=== PATIENT | female | born 1955 | race Caucasian/White ===

== ENCOUNTER 2022-07-20 13:02 | Outpatient (CLI) | payer MEDICARE, BC, SELFPAY ==
--- NOTE | 2022-07-20 13:20 | CRLHL7_ITS ---
For Patients: As a result of the Cures Act, medical imaging exams and procedure reports are released immediately into your electronic medical record. You may view this report before your referring provider. If you have questions, please contact your health care provider. BILATERAL SCREENING MAMMOGRAM WITH COMPUTER-AIDED DETECTION AND TOMOSYNTHESIS TECHNIQUE: CC and MLO views were obtained. These mammographic images have been obtained using full-field digital technique. These mammographic images were interpreted with the benefit of computer-aided detection. Breast Tomosynthesis was used in this interpretation. COMPARISON FILM: 07/26/20, 05/11/20, 05/07/19. FINDINGS: There are scattered areas of fibroglandular density. IMPRESSION: There is no radiographic evidence for malignancy. ASSESSMENT: BI-RADS Category 1: Negative RECOMMENDATION: Routine screening mammogram in 1 year. A lay language report of this examination will be provided to the patient. Silvano Goldman M.D. Diagnostic Radiologist [email or web address] Transcribed: 12:09 p.m. PT/Dictated by: Silvano Goldman MD @ 07/21/2022 8:59:00 AM (Electronically Signed)
== END 2022-07-20 13:03 | disposition home or self-care (01) ==
PROVIDERS: PCP Family Medicine; Visit Provider Family Medicine
DX: Z12.31 Encounter for screening mammogram for malignant neoplasm of breast (principal)
CPT/HCPCS: 77063; 77067

== ENCOUNTER 2022-07-25 17:12 | Emergency (ER) | payer MEDICARE, BC, SELFPAY ==
[2022-07-25] VITALS (23 sets, daily range): BP systolic 132–194; BP diastolic 71–109; PULSE 70–90; RESP 18; TEMP 37.4; O2SAT 95–99; BMI 25.1
[2022-07-25] MEDS: NITROGLYCERIN 0.4 MG TAB.SUBL SUBLINGUAL ×2 (17:45→18:00)
--- NOTE | 2022-07-25 17:55 | CRLHL7_ITS ---
For Patients: As a result of the Century Cures Act, medical imaging exams and procedure reports are released immediately into your electronic medical record. You may view this report before your referring provider. If you have questions, please contact your health care provider. INDICATION: CHEST PAIN TECHNIQUE: Chest 1 view. COMPARISON: 10/28/13 FINDINGS: Cardiovascular and mediastinum: Heart size and vasculature are normal in caliber and appearance. Mediastinum is within normal limits. Lungs and pleural space: Lungs are clear. No sign of infiltrate or mass. No sign of pleural effusion. No pneumothorax. Bones and soft tissues: No significant findings. IMPRESSION: Unremarkable chest. Dictated by: Silvano Barajas MD @ 07/25/2022 18:11:06 (Electronically Signed)
[2022-07-25 18:07] LABS: Basophils Absolute Auto 0.01 K/uL (0.00-0.30); Basophils Percent Auto 0.2 % (0.0-3.0); Eosinophils Percent Auto 3.3 % (0.0-7.0); Hematocrit 45.7 % (33.0-51.0); Hemoglobin* 15.1 gm/dL (12.0-16.0); Immature Granulocytes Abs Auto 0.01 K/uL (0.00-0.30); Immature Granulocytes Pct Auto 0.2 %; Lymphocytes Absolute Auto 2.18 K/uL (0.90-2.90); Lymphocytes Percent Auto 35.6 % (20-44); Mean Corpuscular HGB Conc 33 gm/dL (32-36); Mean Corpuscular Hemoglobin 31 pg (26-34); Mean Corpuscular Volume 95 fL (80-100); Monocytes Percent Auto 9.3 % (0.0-11.0); Neutrophils Absolute Auto 3.16 K/uL (1.7-7.0); Neutrophils Percent Auto 51.4 % (42.0-72.0); Platelet Count* 256 K/uL (140-440); RDW Coefficient of Variation % 13.2 % (11.5-15.5); Red Blood Count 4.83 m/uL (4.00-5.20); White Blood Count* 6.13 K/uL (4.50-11.00)
[2022-07-25] MEDS: ASPIRIN 81 MG TAB.CHEW 324 MG PO (18:15)
[2022-07-25] MEDS: 0.9 % SODIUM CHLORIDE 500 ML 500 ML IV (18:16)
[2022-07-25 18:21] LABS: Chloride* 106 mmol/L (96-114)
[2022-07-25 18:22] LABS: Sodium* 141 mmol/L (135-149)
[2022-07-25 18:25] LABS: Blood Urea Nitrogen* 17 mg/dL (7-30); Carbon Dioxide* 27 mmol/L (20-32); Creatinine* 0.8 mg/dL (0.5-1.5); Est. Creatinine Clearance* 41.99; Estimated Glomerular Filt Rate 80 ml/min; Glucose* 97 mg/dL (60-115)
[2022-07-25 18:26] LABS: Calcium* 9.7 mg/dL (8.4-10.6)
[2022-07-25 18:28] LABS: Slide Review Reflex No
[2022-07-25 18:29] LABS: C Reactive Protein* < 0.5 mg/dL (0.5-1.0)
[2022-07-25 19:04] LABS: Albumin* 4.6 g/dL (3.3-5.0)
[2022-07-25 19:07] LABS: Alkaline Phosphatase* 88 U/L (40-150); Aspartate Amino Transferase* 29 U/L (12-35); Bilirubin Direct* 0.3 mg/dL (0.0-0.5); Bilirubin Total* 0.5 mg/dL (0.1-1.5); Lipase* 60 U/L (23-300); Total Protein* 7.3 g/dL (6.0-8.3)
[2022-07-25 19:08] LABS: Alanine Aminotransferase* 27 U/L (4-35)
[2022-07-25 19:17] LABS: NT Pro B Type NatriureticPept* 130 pg/mL
[2022-07-25 19:22] LABS: D Dimer Quantitative* < 0.27 ug/ml (0.00-0.50)
[2022-07-25 19:42] LABS: PCR FLU A Negative PCR FLU A (Negative); PCR FLU B Negative PCR FLU B (Negative); PCR RSV Negative PCR RSV (Negative)
[2022-07-25 19:47] LABS: SARS PCR* Negative SARS-CoV-2 (Negative)
--- NOTE | 2022-07-25 20:27 | ED.GENADULT ---
HPI - General Adult General Date Seen: 07/25/22 Chief complaint: Chest Pain Stated complaint: Chest pain, high BP Time Seen by Provider: 07/25/22 17:14 Source: patient Mode of arrival: ambulatory Limitations: no limitations History of Present Illness HPI narrative: Patient is a 67-year-old woman who comes in saying that she is concerned about her blood pressure being high today. She has checked it throughout the day and it has been significantly elevated. She says she has had a mild headache but nothing severe. No focal neurologic complaints. No vomiting although she has felt a little nauseated. She also notes that she has had some pain across her chest. She says that this has come and gone since 10:00 a.m. but since 3:00 p.m. she says it has been more constant. It radiates to the back and she told me that it radiates to her arms and jaw although she did not tell the nurses that. She describes it as a pressure. It is not worsened by exertion or position. It is not pleuritic. She does not have any shortness of breath. Denies any lower extremity swelling or pain. Denies any history of similar pain previously. She says every time she has checked her blood pressure today it has been a little higher, and she has gotten more and more concerned. She called the nurse line, and they read off symptoms of possible heart attack and told her to use her judgment as to whether not she came in. Does say that her brother had 4 vessel bypass when he was 75, and since she is 67 that is been on her mind as well. She has not had any palpitations or syncope. She does not smoke or drink. She is here tonight with her . Related Data Home Medications Medication Instructions Recorded Confirmed lovastatin 40 mg tablet 40 mg PO HS 07/25/22 07/25/22 zinc 1 tab PO DAILY 07/25/22 07/25/22 Allergies Allergy/AdvReac Type Severity Reaction Status Date / Time Sulfa (Sulfonamide Allergy Mild rash Verified 07/25/22 17:45 Antibiotics) macrobid Allergy Mild rash Uncoded 07/25/22 17:45 prednisone Allergy Mild throat and Uncoded 07/25/22 17:45 chest tightness Review of Systems Status of ROS: Reports: 10 or more systems reviewed and unremarkable except as noted in History and below PFSH PFS Social History Smoking Status: Never smoker Do you use any of these nicotine containing products: None Second hand tobacco smoke exposure: No How often do you have a drink containing alcohol: 4 or more times a week How many standard drinks containing alcohol do you have on a typical day: 1 or 2 How often do you have six or more drinks on one occasion: Never AUDIT-C Alcohol total score: 4 Non-prescribed substance use: denies use Exam Narrative: Exam Narrative: Vital signs as noted above. In general, an alert, nontoxic elderly woman. She looks comfortable, she is breathing easily. Head: Normocephalic, atraumatic. Eyes: Pupils are equal reactive. Extraocular movements are full. Conjunctivae are normal. ENT: Mucous membranes are moist. Throat is normal. Neck: Supple without lymphadenopathy. Heart: Regular rate and rhythm. No murmur or rub. Lungs: Clear bilaterally. No increased work of breathing, crackles or wheezes. Abdomen: Soft and nontender. No organomegaly. Extremities: Well perfused. No edema. No calf tenderness. Pulses intact. Neurologic: Patient is alert and oriented to person and place. Speech is fluent. Face is symmetric. Moves all extremities equally. Affect: Normal. Skin: Warm and dry. Well perfused. Const: Vital Signs, click to edit/add: Vital Signs - 24 hr 07/25/22 17:33 07/25/22 18:06 07/25/22 17:55 Temperature 99.4 F Pulse Rate 88 Pulse Rate [Left P ulse Oximeter] 90 Respiratory Rate 18 Blood Pressure Blood Pressure [Ri ght Upper Arm] 194/109 H Pulse Oximetry 98 99 97 Oxygen Delivery Me thod Room Air 07/25/22 18:00 07/25/22 18:02 07/25/22 18:03 Temperature Pulse Rate 81 80 88 Pulse Rate [Left P ulse Oximeter] Respiratory Rate Blood Pressure 165/107 H Blood Pressure [Ri ght Upper Arm] Pulse Oximetry 97 97 98 Oxygen Delivery Me thod 07/25/22 18:15 07/25/22 18:17 07/25/22 18:30 Temperature Pulse Rate 82 87 75 Pulse Rate [Left P ulse Oximeter] Respiratory Rate Blood Pressure 146/90 H Blood Pressure [Ri ght Upper Arm] Pulse Oximetry 96 97 98 Oxygen Delivery Me thod 07/25/22 18:31 07/25/22 18:45 07/25/22 18:47 Temperature Pulse Rate 75 80 78 Pulse Rate [Left P ulse Oximeter] Respiratory Rate Blood Pressure 148/78 H 151/84 H Blood Pressure [Ri ght Upper Arm] Pulse Oximetry 98 97 98 Oxygen Delivery Me thod 07/25/22 19:00 07/25/22 19:02 07/25/22 19:03 Temperature Pulse Rate 71 74 75 Pulse Rate [Left P ulse Oximeter] Respiratory Rate Blood Pressure 132/81 Blood Pressure [Ri ght Upper Arm] Pulse Oximetry 98 96 96 Oxygen Delivery Me thod 07/25/22 19:15 07/25/22 19:16 07/25/22 19:30 Temperature Pulse Rate 73 73 70 Pulse Rate [Left P ulse Oximeter] Respiratory Rate Blood Pressure 140/75 H Blood Pressure [Ri ght Upper Arm] Pulse Oximetry 97 95 98 Oxygen Delivery Me thod 07/25/22 19:31 07/25/22 19:45 07/25/22 19:47 Temperature Pulse Rate 72 82 73 Pulse Rate [Left P ulse Oximeter] Respiratory Rate Blood Pressure 132/71 141/71 H Blood Pressure [Ri ght Upper Arm] Pulse Oximetry 95 96 97 Oxygen Delivery Me thod 07/25/22 20:00 07/25/22 20:02 Temperature Pulse Rate 80 75 Pulse Rate [Left P ulse Oximeter] Respiratory Rate Blood Pressure 154/85 H Blood Pressure [Ri ght Upper Arm] Pulse Oximetry 97 97 Oxygen Delivery Me thod Documenting provider has reviewed patient's vital signs: yes Course Course Hospital Course: On arrival, patient had an EKG. By my review, this showed a normal sinus rhythm, ventricular rate of 89 beats per minute. There is a little baseline waiver in V3, but she does appear to have slight amount of ST depression in V3 and V4, and a little bit of ST depression in V2. No ST elevation. She had nitroglycerin sublingual x2, she had an aspirin. Her blood pressure did come back quite nicely. I compared her current EKG to an old EKG from 2014, at which time she had a normal EKG, no ST depression or elevation. About 20-25 minutes after her 1st EKG and when her blood pressure was improved and chest pain was less than, I repeated an EKG. At that time she had a ventricular rate of 79 beats per minute, and the ST depression previously seen in V3 and V4 and lead to is no longer seen. The baseline waiver in V3 is corrected. Her initial troponin was 0. A troponin at2 hours. was likewise 0. This would have been after about 5 hours of pain. I did review her EKGs with Cardiology at [facility] given that she had some subtle findings which changed with improvement in her blood pressure. He felt that they were quite subtle that if she ruled out it would be appropriate to discharge home with outpatient follow-up for either stress testing or CT coronary angiogram. Her blood pressure normalized quite nicely while she was here. Her headache resolved. Her white blood cell count was normal at 6, hemoglobin was 15.1. Platelets normal. D-dimer was less than 0.27. I do not think this represents dissection. Her chest pain has been mild, hypertension has resolved, D-dimer is negative. I did do a chest x-ray, which showed a normal mediastinum. Final radiology report is negative. Metabolic panel is entirely within normal limits. LFTs are normal. CRP is less than 0.5. BNP is normal. TSH is 3.2. COVID is negative. At this point, patient is feeling well. Symptoms have improved. She is comfortable with discharge home and outpatient follow-up with her primary clinic. We discussed that she does not need to keep a close eye on her blood pressure at home. I would like her to return to the ER based on symptoms rather than her blood pressure. If she has severe chest pain, shortness of breath, unexplained nausea, lightheadedness, vomiting, etcetera, regardless of her blood pressure, I would like her to come back. Otherwise, follow up with primary care, they can discuss her blood pressure at that time and see if Dr. Bingham would like her to keep track of her blood pressure more closely at home. Outpatient evocative testing or CT coronary angiogram as outlined above Vital Signs Vital signs: Initial Vital Signs Temperature 99.4 F 07/25/22 17:33 Temperature Source Temporal Artery Scan 07/25/22 17:33 Pulse Rate 90 07/25/22 17:33 Respiratory Rate 18 07/25/22 17:33 Blood Pressure 194/109 H 07/25/22 17:33 Blood Pressure Mean 137 07/25/22 17:33 Blood Pressure Position Sitting 07/25/22 17:33 Pulse Oximetry 98 07/25/22 17:33 Oxygen Delivery Method 07/25/22 17:33 Vital Signs Temperature 99.4 F 07/25/22 17:33 Pulse Rate 90 07/25/22 17:33 Respiratory Rate 18 07/25/22 17:33 Blood Pressure 194/109 H 07/25/22 17:33 Pulse Oximetry 98 07/25/22 17:33 Oxygen Delivery Method 07/25/22 17:33 Temperature 99.4 F 07/25/22 17:33 Pulse Rate 75 07/25/22 20:02 Respiratory Rate 18 07/25/22 17:33 Blood Pressure 154/85 H 07/25/22 20:02 Pulse Oximetry 97 07/25/22 20:02 Oxygen Delivery Method 07/25/22 17:33 Medical Decision Making Lab Data Labs: Lab Results 07/25/22 07/25/22 07/25/22 Range/Units 17:40 17:40 17:40 WBC 6.13 (4.50-11.00) K/uL RBC 4.83 (4.00-5.20) m/uL Hgb 15.1 (12.0-16.0) gm/dL Hct 45.7 (33.0-51.0) % MCV 95 (80-100) fL MCH 31 (26-34) pg MCHC 33 (32-36) gm/dL RDW Coeff of Ramon 13.2 (11.5-15.5) % Plt Count 256 (140-440) K/uL Neut % (Auto) 51.4 (42.0-72.0) % Lymph % (Auto) 35.6 (20-44) % [place] % (Auto) 9.3 (0.0-11.0) % Eos % (Auto) 3.3 (0.0-7.0) % Baso % (Auto) 0.2 (0.0-3.0) % Neut # (Auto) 3.16 (1.7-7.0) K/uL Lymph # (Auto) 2.18 (0.90-2.90) K/uL [place] # (Auto) 0.60 (0.00-0.90) K/UL Eos # (Auto) 0.20 (0.00-0.50) K/uL Baso # (Auto) 0.01 (0.00-0.30) K/uL D-Dimer Quant (PE/DVT) (0.00-0.50) ug/ml Sodium 141 (135-149) mmol/L Potassium 4.0 (3.6-5.1) mmol/L Chloride 106 (96-114) mmol/L Carbon Dioxide 27 (20-32) mmol/L BUN 17 (7-30) mg/dL Creatinine 0.8 (0.5-1.5) mg/dL Estimated Creat Clear 41.99 Estimated GFR 80 ml/min Glucose 97 (60-115) mg/dL Calcium 9.7 (8.4-10.6) mg/dL Total Bilirubin (0.1-1.5) mg/dL Direct Bilirubin (0.0-0.5) mg/dL AST (12-35) U/L ALT (4-35) U/L Alkaline Phosphatase (40-150) U/L C-Reactive Protein < 0.5 L (0.5-1.0) mg/dL NT-Pro-B Natriuret Pep pg/mL Total Protein (6.0-8.3) g/dL Albumin (3.3-5.0) g/dL Lipase (23-300) U/L TSH (0.270-4.200) uIU/mL SARS-CoV-2 (PCR) (Negative) Influenza Type A (PCR) (Negative) Influenza Type B (PCR) (Negative) RSV (PCR) (Negative) POC Troponin I 0.00 L (0.01-0.04) ng/ml 07/25/22 07/25/22 07/25/22 Range/Units 17:40 17:40 17:40 WBC (4.50-11.00) K/uL RBC (4.00-5.20) m/uL Hgb (12.0-16.0) gm/dL Hct (33.0-51.0) % MCV (80-100) fL MCH (26-34) pg MCHC (32-36) gm/dL RDW Coeff of Ramon (11.5-15.5) % Plt Count (140-440) K/uL Neut % (Auto) (42.0-72.0) % Lymph % (Auto) (20-44) % [place] % (Auto) (0.0-11.0) % Eos % (Auto) (0.0-7.0) % Baso % (Auto) (0.0-3.0) % Neut # (Auto) (1.7-7.0) K/uL Lymph # (Auto) (0.90-2.90) K/uL [place] # (Auto) (0.00-0.90) K/UL Eos # (Auto) (0.00-0.50) K/uL Baso # (Auto) (0.00-0.30) K/uL D-Dimer Quant (PE/DVT) < 0.27 (0.00-0.50) ug/ml Sodium (135-149) mmol/L Potassium (3.6-5.1) mmol/L Chloride (96-114) mmol/L Carbon Dioxide (20-32) mmol/L BUN (7-30) mg/dL Creatinine (0.5-1.5) mg/dL Estimated Creat Clear Estimated GFR ml/min Glucose (60-115) mg/dL Calcium (8.4-10.6) mg/dL Total Bilirubin 0.5 (0.1-1.5) mg/dL Direct Bilirubin 0.3 (0.0-0.5) mg/dL AST 29 (12-35) U/L ALT 27 (4-35) U/L Alkaline Phosphatase 88 (40-150) U/L C-Reactive Protein (0.5-1.0) mg/dL NT-Pro-B Natriuret Pep 130 pg/mL Total Protein 7.3 (6.0-8.3) g/dL Albumin 4.6 (3.3-5.0) g/dL Lipase 60 (23-300) U/L TSH 3.280 (0.270-4.200) uIU/mL SARS-CoV-2 (PCR) (Negative) Influenza Type A (PCR) (Negative) Influenza Type B (PCR) (Negative) RSV (PCR) (Negative) POC Troponin I (0.01-0.04) ng/ml 07/25/22 07/25/22 Range/Units 17:56 19:43 WBC (4.50-11.00) K/uL RBC (4.00-5.20) m/uL Hgb (12.0-16.0) gm/dL Hct (33.0-51.0) % MCV (80-100) fL MCH (26-34) pg MCHC (32-36) gm/dL RDW Coeff of Ramon (11.5-15.5) % Plt Count (140-440) K/uL Neut % (Auto) (42.0-72.0) % Lymph % (Auto) (20-44) % [place] % (Auto) (0.0-11.0) % Eos % (Auto) (0.0-7.0) % Baso % (Auto) (0.0-3.0) % Neut # (Auto) (1.7-7.0) K/uL Lymph # (Auto) (0.90-2.90) K/uL [place] # (Auto) (0.00-0.90) K/UL Eos # (Auto) (0.00-0.50) K/uL Baso # (Auto) (0.00-0.30) K/uL D-Dimer Quant (PE/DVT) (0.00-0.50) ug/ml Sodium (135-149) mmol/L Potassium (3.6-5.1) mmol/L Chloride (96-114) mmol/L Carbon Dioxide (20-32) mmol/L BUN (7-30) mg/dL Creatinine (0.5-1.5) mg/dL Estimated Creat Clear Estimated GFR ml/min Glucose (60-115) mg/dL Calcium (8.4-10.6) mg/dL Total Bilirubin (0.1-1.5) mg/dL Direct Bilirubin (0.0-0.5) mg/dL AST (12-35) U/L ALT (4-35) U/L Alkaline Phosphatase (40-150) U/L C-Reactive Protein (0.5-1.0) mg/dL NT-Pro-B Natriuret Pep pg/mL Total Protein (6.0-8.3) g/dL Albumin (3.3-5.0) g/dL Lipase (23-300) U/L TSH (0.270-4.200) uIU/mL SARS-CoV-2 (PCR) Negative SARS-CoV-2 (Negative) Influenza Type A (PCR) Negative PCR FLU A (Negative) Influenza Type B (PCR) Negative PCR FLU B (Negative) RSV (PCR) Negative PCR RSV (Negative) POC Troponin I 0.00 L (0.01-0.04) ng/ml Discharge Plan Discharge Clinical Impression: Chest pain Patient Disposition: Home, Self-Care Condition: Improved Instructions: Chest Pain (ED) Additional Instructions: Follow-up with Dr. Bingham this week for re-evaluation and to arrange for outpatient stress test. If at any time you have severe chest pain, shortness of breath, unexplained nausea, sweats, vomiting, etcetera, return to the emergency department for re-evaluation. Prescriptions: No Action lovastatin 40 mg tablet 40 mg PO HS Label Comments: TAKE ONE TABLET BY MOUTH ONE TIME DAILY AT BEDTIME zinc 1 tab PO DAILY Follow Up/Referrals: Thais Bingham MD [Primary Care Provider] - Stand Alone Forms: Picateersth Info Instructions
== END 2022-07-25 20:19 | disposition home or self-care (01) ==
PROVIDERS: Emergency Provider Emergency Medicine; PCP Family Medicine
DX: R07.9 Chest pain, unspecified (principal)
CPT/HCPCS: 36415; 71045; 80048; 80076; 83690; 83880; 84443; 84484; 85025; 85379; 86140; 87502; 87634; 87635; 93005; 94761; 99284; 99285; A9270; J7120

== ENCOUNTER 2022-10-05 10:46 | Outpatient (RCR) | payer MEDICARE, BC, SELFPAY | END 2023-01-19 23:59 | disposition home or self-care (01) | PROVIDERS: PCP Family Medicine; Visit Provider Orthopaedic Surgery Sports Medicine | DX: M67.911 Unspecified disorder of synovium and tendon, right shoulder (principal); M75.111 Incomplete rotator cuff tear or rupture of right shoulder, not specified as traumatic; M25.511 Pain in right shoulder; M62.81 Muscle weakness (generalized); Z51.89 Encounter for other specified aftercare | CPT/HCPCS: 97110; 97162 ==

== ENCOUNTER 2023-02-15 14:30 | Outpatient (RCR) | payer MEDICARE, BC, SELFPAY ==
--- NOTE | 2022-11-23 12:08 | PT.OPEX ---
PT [place] Outpatient Eval PT [facility] Outpatient Eval Start: 11/23/22 07:18 Freq: Status: Active Protocol: Document 11/23/22 07:19 MAI (Rec: 11/23/22 07:26 MAI [id number]) E-signed By Shayy Gomez PT Physical Therapy Outpatient Evaluation Insurance Information Recert Due Date 02/17/23 Insurance Name Medicare B Medical Diagnosis P/O Rt Shoulder SAD/DCE/RCR DOS: 11/09/22 Treating Diagnosis Impaired AROM and MMT Rt shoulder Reduced ease of self cares and home tasks Referring MD Dr Darell Santiago Subjective Subjective Cori reports having Rt shoulder pain for the past 4+ months of unknown etiology ( denies accident or incident which may be related to pain). She was seen in PT and attempted HEP, but it was just too painful and she returned to physician for f/u. Per MRI findings, she underwent a Rt Shoulder SAD/DCE/RCR with surgery on 11/09/22. She is seen this date as her first PT session since her surgical date, s/p 2 weeks. Cori states she has been doing well, pain has been minimal. Only taking Tylenol or Ibuprofen before bed to help her sleep. Ice feels great. Not taking any stronger pain meds. Minimal tingling into fingers, which dissipates with sling removal and arm dangle. Sleeping in her own bed already. No DARBY or additional neck pain (has PMHX of CX impingement/DDD). Cont with her neck stretches and core ex already. Walking for ex, has not yet tried pool. Pain Comments Low pain Rt shoulder/UE Date of Last Physician Visit 11/09/22 Date of Next Physician Visit 12/21/22 Date of Surgery (If applicable) 11/09/22 Current Work Status Retired Preferred Name Cori Precautions Treatment Precautions/Contraindications Degenerative Lumbar Stenosis, Sulfa Allergies, Fibromyalgia, IBS, Osteopenia, Sjogrens Syndrome, Hypertension, PMHX of recurring BPPV, metal implants. Therapy Limitations/Systems Review Vision Objective Range of Motion CX AROM WNL ROT, SB 75% normal , EXT 60% normal. Lt shoulder is WNL Rt shoulder PROM: FF 0-115 deg , ABD 0-60 deg, ER 0-30 deg. All very open end feel and pain free. Stopped with discomfort. Elbow/forearm/wrist/hand WNL Strength NA Swelling Palpable edema at Rt shoulder. She stopped using ice machine because she had no real pain to speak of. Advised to resume ice 2-3 X/Day even if pain free. Palpation Very guarded at pect major and minor Posture Slight elevation of Rt shoulder. Assessment Assessment/Impression 67 yo female who underwent a Rt shoulder RCR/SAD/DCE on 04/24. She arrived to clinic IND ambulation without any AD, wearing Rt shoulder sling. She has slight forward head and elevated Rt shoulder, able to relax and reposition very easily. She has been seen previously for neck involvement, she is aware of and resumed performing CX stretches and postural ex ( scapular retraction/depression , UT stretching, etc). She is able to independently don/doff her own sling, carefully don/ doff overhead shirt (place Rt arm into sleeve first, then overhead). She is independent in bed mobility. She tolerated PROM very well; PROM in supine: FF 0-115 deg, ABD 0-60 deg, ER 0-30 deg - all open end feel and completely pain free in noted range. She has increased tone and guarding of pect major/minor and some increased tone at biceps. Edema is present, client states she stopped using ice as she was pain free. Educated in benefits of cont ice use - advised 2-3 times per day to control edema/pain and improve healing. She has AROM WNL in Rt elbow, forearm, wrist. Denies N/T into UE. She will benefit from continued skilled physical therapy to provide PROM and postural education, progress into AAROM/AROM and strength per physician f/u and approval to progress through RCR protocol. Thank you for this referral. Plan of Care Rehabilitation Potential Good Physical Therapy Goals In 4-6 weeks, Cori will be able to: 1. Complete PROM with minimal pain, WFL 2. Perform HEP independently with proper pace, reps and HOLD duration, emphasis on proper alignment 3. [employer] strength of at least 2 /3 that of non-involved Lt UE In 10-12 weeks, Cori will be able to: 1. AROM WFL pain free, allow don/doff overhead shirt without compensatory movement patterns 2. MMT at least 4/5 in gravity resisted position stance to promote UE repetitive use for 60 min at waist to sternum height. 3. Lift/carry up to 20# to: gather and carry groceries, complete laundry and vacuum, meal prep and clean up, lift her new Great Grandson safely. 4. Return to at least 75% of PLOF without discomfort greater than 2/10 average. Coordination/Communication With Referral Source Treatment Plan/Direct Interventions Ice/Cold/Vasopneumatic,Joint Mobilization,Manual Therapy, Neuromuscular Re-ed,Self-Care/ Home Management,Therapeutic Activities,Therapeutic Exercises Frequency/Duration 1X/Wk for 20 visits Patient Will Be Discharged From Therapy Completion of LTG(s),Skills Plateau,Independent w/HEP, Independently Progressing Evaluation Billing Untimed Code Treatment Minutes 23 Complexity Moderate Certification Information Initial Certification Date 11/23/22 Ending Certification Date 02/17/23 Provider Signature Shows Agreement With POC & Medical Necessity Physician Signature & Date Requested Please Sign/Date Here Physician Comment/Change : Physician NPI Number #
== END 2023-05-18 17:29 | disposition home or self-care (01) ==
PROVIDERS: PCP Family Medicine; Visit Provider Orthopaedic Surgery Sports Medicine
DX: Z98.890 Other specified postprocedural states (principal); Z51.89 Encounter for other specified aftercare
CPT/HCPCS: 97110; 97140; 97162

== ENCOUNTER 2023-07-25 15:39 | Outpatient (CLI) | payer MEDICARE, BC, SELFPAY ==
--- OUTSIDE RECORDS SUMMARY | 2023-07-25 15:47 | XMS_ITS | Continuity of Care Document ---
Author Name Unknown Organization [facility] Address [address] [place] [address] Phone Care Team Providers Care Line Haul Owner Operator Name Role Phone Ezequiel Gregory Unavailable Unavailable Allergies, Adverse Reactions, Alerts Substance Reaction Status Criticality NITROFURANTOIN MACROCRYSTALLINE Active No Information azithromycin Active No Information Sulfa (Sulfonamide Antibiotics) Active No Information Medications Medication Instructions Dosage Effective Dates (start - stop) Status Comments HYDROCHLOROTHIAZIDE (unknown strength) Not Available - Active LOVASTATIN (unknown strength) Not Available - Active ZANTAC (unknown strength) Not Available - Active Procedures Procedure Date Office/Outpatient Visit,[facility] 2018 Advance Directives Directive Yes / No Effective Date File Name No Information Encounters Encounter Description Practice Location Reason(s) For Visit Diagnoses Date Provider Providers Copied on Encounter [facility], [address], [place], [place], [id number], [place] tel:[phone] [facility] No Information [address]. [facility], [address], [place], [place], [id number] , [place]. [phone] Office/Outpat ient Visit,[facility], [address], [place], [place], [id number], [place] tel:[phone] [facility] [place] CervicalgiaLow back pain 9 [address]ieves. [facility], [address], [place], [place], [id number] , [place]. [phone] Referring Provider: Thais Bingham [facility] [address], [place], [address]. tel:[phone] Family History Family Member Type Diagnosis Age At Onset No Information Payers Payer name Insurance type Covered democrat ID Olga cam(s) [facility] [id number] Medicare Agustin [id number] Social History Type Description Quantity Date Captured Comments Sex Female Smoking Status No Information Chief Complaint And Reason For Visit No Information Reason For Referral Reason For Referral No Information History Of Present Illness Encounter Date Complaint History Of Prese nt Illness No Information Functional Status Date Functional Assessmen t No Information Instructions Date Instruction Additional Infor mation No Information Assessments Type Assessment Date No Information Patient Care Teams Name Effective Dates (start - stop) Status Members No Information
--- OUTSIDE RECORDS SUMMARY | 2023-07-25 15:47 | XMS_ITS | Data Portability ---
Author Name Unknown Address [address] [place] [address] Phone [phone] Organization [place] [facility], [facility] Address [address] [place] [address] Care Team Providers Care Parachute Inspector Name Role Phone WIL OCHOA Referring Provider [phone] Assessment Encounter Date Assessment Date Assessment LastModified by Organization Details LastModified Time 09/15/2017 09/15/2017 New Patient. [email or web address] Not available 0 09/15/2017 21:59:12 Plan of Treatment Reminders Order Date Submit Date Provider Last Modified By Organization Details Last Modified Time Details Appointments None recorded. Lab urinalysis , dipstick 2017 018 [email or web address] In-Office Order, Internal Use Only DO Not Attach Compendium DO Not Attach Compendium, Do Not Delete/merge, [id number] 14:24:37 culture, urine 2017 018 [facility], [address] [place], [address], 8 00:27:46 Referral None recorded. Procedures None recorded. Surgeries None recorded. Imaging None recorded. Medication Orders ciprofloxa tatyana 500 mg tablet 2017 018 [id number], [address], [place], [id number], 8 10:13:28 Patient TargetsNo targets recorded. Patient Instructions Encounter Date Encounter Id Patient Instructions Last Modified By Organization Details Last Modified Time 09/15/2017 [id number] Patient understands instructions and will seek medical attention if symptoms worsen as directed. [email or web address] Not available 09/15/2017 22:00:01 Reason for Referral None Reported. Results Created Date Observation Date Name Description Value Unit Range Abnormal Flag LastModifiedBy Organization Detail LastModifiedTime 09/16/19 18 09/16/2017 cultu re, urine culture, urine, routine see note Not Available [facility] [address], [place], [address], 09/17/2017 00:27:46 09/16/19 18 09/15/2017 urina lysis , dipst ick leukocytes small negati ve Not Available In-Office Order Internal Use Only DO Not Attach Compendium DO Not Attach Compendium, Do Not Delete/merge, [id number] 09/15/2017 09:30:55 09/16/19 18 09/15/2017 urina lysis , dipst ick nitrite pos negati ve Not Available In-Office Order Internal Use Only DO Not Attach Compendium DO Not Attach Compendium, Do Not Delete/merge, [id number] 09/15/2017 09:30:55 09/16/19 18 09/15/2017 urina lysis , dipst ick urobilinogen 0.2 0.2 Not Available In- Office Order Internal Use Only DO Not Attach Compendium DO Not Attach Compendium, Do Not Delete/merge, [id number] 09/15/2017 09:30:55 09/16/19 18 09/15/2017 urina lysis , dipst ick protein ng negati ve Not Available In-Office Order Internal Use Only DO Not Attach Compendium DO Not Attach Compendium, Do Not Delete/merge, [id number] 09/15/2017 09:30:55 09/16/19 18 09/15/2017 urina lysis , dipst ick pH 5.5 5.0-7. 0 Not Available In-Office Order Internal Use Only DO Not Attach Compendium DO Not Attach Compendium, Do Not Delete/merge, [id number] 09/15/2017 09:30:55 09/16/19 18 09/15/2017 urina lysis , dipst ick blood ng negati ve Not Available In-Office Order Internal Use Only DO Not Attach Compendium DO Not Attach Compendium, Do Not Delete/merge, [id number] 09/15/2017 09:30:55 09/16/19 18 09/15/2017 urina lysis , dipst ick specific gravity 1.005 1.020- 1.035 Not Available In-Office Order Internal Use Only DO Not Attach Compendium DO Not Attach Compendium, Do Not Delete/merge, [id number] 09/15/2017 09:30:55 09/16/19 18 09/15/2017 urina lysis , dipst ick ketone ng negati ve Not Available In-Office Order Internal Use Only DO Not Attach Compendium DO Not Attach Compendium, Do Not Delete/merge, [id number] 09/15/2017 09:30:55 09/16/19 18 09/15/2017 urina lysis , dipst ick bilirubin ng negati ve Not Available In-Office Order Internal Use Only DO Not Attach Compendium DO Not Attach Compendium, Do Not Delete/merge, [id number] 09/15/2017 09:30:55 09/16/19 18 09/15/2017 urina lysis , dipst ick glucose 100 negati ve Not Available In-Office Order Internal Use Only DO Not Attach Compendium DO Not Attach Compendium, Do Not Delete/merge, [id number] 09/15/2017 09:30:55 Result Notes None recorded. Problems Name Status Onset Date Resolution Date Notes Provider Name and Address Organization Details Recorded Time Hyperlipidemia Active 09/16/19 18 CALVIN Aguillon [address] [employer] [address], [place], [address] , [facility] [employer] [facility], [facility] 09/15/2017 22:00:51 Essential hypertension Active 09/16/19 18 CALVIN Aguillon [address], [place], [address] , [facility] [employer] [facility], [facility] 09/15/2017 22:00:58 Problem Notes None recorded. Procedures Surgical History Date Name Laterality Status Provider Name and Address Organization Details Recorded Time 5 Knee [facility], [facility] 09/15/2017 09:33:11 Imaging Results None recorded. Procedure Notes None recorded. Medical Equipment None Reported. Allergies Allergen ID Allergen Name Allergen Category Reaction Reaction Severity Criticality Documentation Date Start Date Code Code System Note Provider Name and Address Organization Details Recorded Time 153868 Macrodant in medicatio n Not available Not available Not available 09/15/2017 02964 4 RxNorm Leny vasquez [facility] 8 09:31:25 [id number] Substance with sulfonami de structure and antibacte rial mechanism of action (substanc e) medicatio n Not available Not available Not available 09/15/2017 67202 8003 SNOMED Luana De Jesus, [employer] [address] [address], [place], [address] [place] [address] 8 10:11:18 Medications Name Sig Start Date Stop Date Status Note LastModified by Organization Details LastModified Time ciprofloxacin 500 mg tablet TK 1 T PO Q 12 H FOR 10 DAYS active Not Available Not Available No t Available Zantac 150 mg tablet Take 1 tablet twice a day by oral route. active Not Available Not Available No t Available hydrochlorothia zide active 10 mg daily Not Available Not Available Not Available pravastatin active Not Available Not A vailable Not Available Vitals Date Recorded Body weight Body mass index (BMI) Body height Body temperature Heart rate Respiratory rate Oxygen saturation Oxygen saturation in Arterial blood by Pulse oximetry Systolic blood pressure Diastolic blood pressure Provider Name and Address Organization Details Last Updated DateTime 8 91884.7 9 g 24.3 kg/m2 157.48 cm 99 [degF] 79 /min 16 /min 98 % 98 % 138 mm[Hg] 78 mm[Hg] [facility] 8 09:51:42 Social History Question Answer Notes LastModified by Organizat ion Details LastModified Time Tobacco Smoking Status Never Smoker Leny vasquez [facility] 09/15/2017 09:34:25 Which Illicit Or Recreational Drugs Have You Used? Declines To Answer Information not available 09/15/2017 What Is Your Occupation? Retired Information not available 09/15/2017 Alcohol Use 1-2 Per Day Information not available 09/15/2017 What Was The Date Of Your Most Recent Tobacco Screening? 09/15/2017 Information not available 01/25/2019 Sex: Female Functional Status Question Answer Note LastModified by Organizat ion Details LastModified Time What is your exercise level? Occasional Information not available 09/15/2017 Mental Status None recorded. Family History Relationship Description Onset Age of this Age Resolved Age Notes Unspecified Relation Heart disease Unspecified Relation Hypertensive disorder Unspecified Relation Hypercholesterolemia Unspecified Relation Osteoporosis Medical History Condition Response Cancer (location) N Other N Gout N Thyroid Disease N Kidney Stones N Emphysema/COPD N Measles/Mumps N Sexually Transmitted Disease N Depression N Prostate Problems N Vascular Disease N Rash/Skin Condition N Amputation (location) N Parkinson's N Paralysis N Headaches/Migraines N Cardiac Pacemaker/defibrillator N Nerve Damage / Neuropathy N Arthritis N Sleep disorder/Insomnia N Heart disease / Heart Attack N Crohn's Disease N HIV/AIDS N Stroke/TIA N High Cholesterol Y Colon Problems N Serious Injuries N Kidney Disease N Memory Loss/Alzheimer's N Gallbladder disease N High blood pressure Y Congestive heart failure N Falls N Alcohol Overuse N Blood Thinner Treatment N Hormone Replacement N Nervous Breakdown N Bolton's Esophagus N Anemia N Urinary Problems Y Colon Polyps N Gastritis N Hospitalizations (other than operations) N Back pain N Diabetes N Rheumatic Fever N Bleeding Disorder N Cardiac Arrhythmias /irregular heart rat e N Osteopenia/Osteoporosis Y Anxiety/Stress N Asthma N Vision Problems N Erectile / Sexual Dysfunction N Ostomies (location) N Seizures N Jaundice N Sleep Apnea N Hepatitis N Cirrhosis N GERD/Ulcer N Chicken Pox N Allergies (other than meds) N Gynecological HistoryNo gynecological history recorded. Obstetrics History GPAL:G 0 P 0 0 0 0 Past Encounters Encounter ID Performer Location Encounter Start Date Encounter Closed Date Diagnosis/Indication [id number] Wil Ochoa DO [facility] [address] [address] 09/15/2017 09:27:46 09/17/2017 23:19:16 Dysuria Acute urinary tract infection Health Concerns Section Related Observation LastModified by Organization Detai ls LastModified Time None Recorded Concern Status LastModified by Organization Details LastModified Time None Recorded Advance Directives Directive None Recorded Payers Encounter Date Sequence Insurance Name Policy Number Policy Martinez Covered Member ID Martinez Member ID Guarantor Name 09/15/2017 1 [employer] - [employer] ([employer]) Petra Loja [id number] Petra Loja Notes Date Note Type Note Provider Name and Address Organization Details Recorded Time 09/15/2017 text/html HPI Notes: complaint Reported by patient. Reason for visit: acute complaint; c/o frequency, dysuria, chills when urinating, abd pressure x1 days. Onset yesterday afternoon, + hx of freq. uti's. Already taken a dose of amoxil. *Is traveling. Also taken a azo for urinary pain . Quality: dysuria; urgency; frequency Severity: worse Duration: intermittent Onset/Timing: abrupt Context: no recent illness or injury Alleviating factors: nothing Aggravating factors: nothing Associated Symptoms: fever; no flank pain New Patient. Wil Ochoa DO [address], [place], [address], [facility] - [facility], [facility] 09/18/2017 20:11:20 OBGyn Episode No OBEpisode recorded.
--- OUTSIDE RECORDS SUMMARY | 2023-07-25 15:47 | XMS_ITS | Clinical Summary ---
Author Name Unknown Organization [employer] Address [place], [place] [address] Care Team Providers Care Welder Production Line Gas Name Role Phone Thais Bingham MD Primary Care Provide r Soco Banuelos MD Unavailable [phone] Allergies Active Allergy Reactions Criticality Noted Date Comments Nitrofurantoin Nausea And Vomiting 12/30/2006 Prednisone Chest Pain 04/10/2018 Sulfa (Sulfonamide Antibiotics) Nausea And Vomiting 12/30/2006 Hylan G-F 20 Rash 08/28/2018 Medications Medication Sig Dispensed Refills Start Date End Date Status multivitamin chew Take 1 tablet by mouth once daily. 0 12/26/2019 Active betamethasone dipropionate 0.05% (DIPROSONE LOTION 0.05%) lotion 0 10/02/2020 Active medication order composer Take by mouth. Magnesium, Zinc 0 08/26/2021 Active cholecalciferol (Vitamin D-3) 2,000 unit capsule Take 1 Capsule (2,000 units) by mouth once daily. 0 07/29/2022 Active amoxicillin (AMOXIL) 250 mg capsuleIndications: Recurrent UTI Take 1 orally after intercourse 30 Capsule 2 08/19/2022 Active hydroCHLOROthiazide (HCTZ) 25 mg tabletIndications:H TN (hypertension) Take 0.5 Tablets (12.5 mg) by mouth once daily. 45 Tablet 3 08/19/2022 Active polyethylene glycol-electrolyte (GOLYTELY) 236-22.74-6.74 -5.86 gram suspensionIndicatio ns:Encounter for screening colonoscopy Drink 2 liters the day before colonoscopy and drink 2 liters 6 hours before colonoscopy appointment 4000 mL 0 09/04/2023 Active Active Problems Problem Noted Date Diagnosed Date Age-related osteoporosis wit jeremíasut current pathological fracture 04/26/2018 Hyperlipidemia 02/04/2016 Routine adult health maintenance 06/19/2013 Overview: Colonoscopy 06/2013 normal repeat in 10 years HTN (hypertension) 06/07/2011 Fibromyalgia 10/27/2009 Osteoarthritis of knee 10/27/2009 Spondylolisthesis of lumbar region Resolved Problems Problem Noted Date Diagnosed Date Resolved Date Lipidemia 06/07/2011 02/04/2016 Mixed hyperlipidemia 04/01/2008 011 Encounters Date Type Department Care Team Description 07/11/2023 Telephone [facility] [address] [place] [address] Zeferino Peterson MD Screening 06/09/2023 12:00 PM MUSIC PROFESSOR Office Visit [facility] [address] [facility] [address] [place] [address] Soco Banuelos MD Consult (Ref by Dr. Bingham, dry eye/eye discomfort, dry mouth, dry skin. Achy legs recently. ) 06/09/2023 Travel 06/06/2023 Travel from Last 3 Months Immunizations Name Administration Dates Next Due COVID-19 vaccine ([employer] 30mcg/0.3mL) CARYN Al 09/24/2020,09/03/2020 Influenza, Inactivated IIV3 (Age 65+ Years) Preserv Free 04/13/2020 Td (Age >=7 Years) 04/26/2000 Tdap 10/22/2021,06/07/2011 Family History Medical History Relation Name Comments Heart Disease Brother Heart Disease Mother cabg, in the 6 0s Hyperlipidemia Mother Hypertension Mother Parkinsonism Mother Relation Name Status Comments Brother Mother Social History Tobacco Use Types Packs/Day Years Used Date Smoking Tobacco: Former Cigarettes Q uit: 07/03/1975 Smokeless Tobacco: Never Tobacco Cessation:Counseling Given: Not Answered Alcohol Use Standard Drinks/Week Comments Yes 5 (1 standard drink = 0.6 oz pur e alcohol) wine with dinner PHQ-2 Answer Date Recorded PHQ-2 TOTAL SCORE 0 11/03/2022 Social Connections Answer Date Recorded Frequency of Communication with Friends and Fami ly Not on file 04/11/2023 Financial Resource Strain Answer Date R ecorded Difficulty of Paying Living Expenses 3 04/08/2022 Difficulty of Paying Living Expenses Not on file 04/08/2022 Food Insecurity Answer Date Recorded Worried About Running Out of Food in the Last Ye ar 1 04/08/2022 Transportation Needs Answer Date Record ed Lack of Transportation (Medical) 1 04/08/2022 Housing Stability Answer Date Recorded Unable to Pay for Housing in the Last Year 1 04/08/2022 Sex and Gender Information Value Date Recorded Sex Assigned at Not on file Gender Identity Not on file Sexual Orientation Not on file Obstetrics History Last Filed Vital Signs Vital Sign Reading Time Taken Comments Blood Pressure 144/76 06/09/2023 11:55 AM MUSIC PROFESSOR Pulse 72 06/09/2023 11:55 AM MUSIC PROFESSOR Temperature 36.8 ??C (98.2 ??F) 07/29/2022 12:[address] Respiratory Rate 12 06/09/2023 11:55 AM MUSIC PROFESSOR Oxygen Saturation 96% 11/03/2022 12:58 PM CDT Inhaled Oxygen Concentration - - Weight 64.7 kg (142 lb 9.6 oz) 06/09/2023 11:55 AM MUSIC PROFESSOR Height 157.5 cm (5' 2) 11/03/2022 12:58 PM CDT Body Mass Index 26.08 11/03/2022 12:58 PM CDT Plan of Treatment Upcoming Encounters Date Type Department Care Team (Late st Contact Info) Description 07/27/2023 10:20 AM MUSIC PROFESSOR Office Visit [facility] [address] [place] [address] Thais Bingham MD [address] [place] [address] 09/13/2023 8:00 AM CDT Office Visit [facility] [address] [place] [address] Zeferino Peterson MD [address] [place] [address] 06/10/2024 8:30 AM MUSIC PROFESSOR Telemedicine [facility] [address] [facility] [address] [place] [address] Soco Banuelos MD [address] [facility] [address] [place] [address] Health Maintenance Due Date Last Done Comments Zoster (shingles) series for age 50+ (1 of 2) 2003 Pneumococcal series for age 65+ (1 of 1 - PCV) 2018 Medicare Wellness for age 65+ 10/22/2022 10/22/2021, 03/21/2019 COVID-19 vaccine series ( season) 2023 06/17/2021, 09/24/2020, 09/03/2020 Influenza for age 65+ 03/03/2023 04/13/2020 Colonoscopy through age 75 06/19/202306/19, 06/19/2013, 06/07/2011 ([facility] Mammogram for age 45-75 07/20/2023 07/20/19 23, 05/26/2021, 05/11/2020, Additional history exists BMI (ht and wt on same day) for age 18+ 11/04/2023 11/03/2022, 10/22/2021, 06/02/2021, Additional history exists Depression screening for age 12+ 11/04/2023 11/03/2022, 10/22/2021, 03/21/2019, Additional history exists Lipids for age 45-75 11/04/2027 11/03/2022, 01/10/2022, 10/15/2021, Additional history exists Tetanus booster 10/23/2031 10/22/2021, 12/2010, 06/07/2011, Additional history exists DEXA/DXA scan for age 65+ Completed 2017, 03/21/2013, 06/18/2008 Hepatitis C screening for ag e 18-79 Completed 03/21/2019 Tdap Completed 10/22/2021, 06/07/2011 Medical Devices Implanted Type Area Acidizer Water Well Device Identifier Shelf Expiration Date Model / Serial / Lot Bone 1-4mm 30cc Medtronic Chips Canclls Freeze Dried - [id number] Implanted:Qty : 1 on 05/12/2020 by Leandro Renee MD at [facility] Right: Lumbar Vertebrae Medtronic Spine/Ortho 11/05/2024 [id number] / / [id number] Bone Matrix 10cc Progenix Plusputty Dbm - [id number] Implanted:Qty : 1 on 05/12/2020 by Leandro Renee MD at [facility] Right: Lumbar Vertebrae Medtronic Spine/Ortho 12/25/2021 [id number]# / / [id number] Bone Matrix Sm Infuse Bmp - [id number] Implanted:Qty : 1 on 05/12/2020 by Leandro Renee MD at [facility] Right: Lumbar Vertebrae Medtronic Spine/Ortho 04/01/2022 [id number]# / / [id number] Elite Spacer - [id number] Implanted:Qty : 1 on 05/12/2020 by Leandro Renee MD at [facility] Right: Lumbar Vertebrae [employer] 12/31/2024 [id number] / / [id number] Screw Lmbr Mantis Redux - [id number] Implanted:Qty : 4 on 05/12/2020 by Leandro Renee MD at [facility] Right: Lumbar Vertebrae Al Spine [id number] / / Screw Lmbr 7.5x50mm Es2 Va Mis - [id number] Implanted:Qty : 4 on 05/12/2020 by Leandro Renee MD at [facility] Right: Lumbar Vertebrae Al Spine [id number] / / Price Lmbr 40mmx5.5 Es2 Cvd - [id number] Implanted:Qty : 1 on 05/12/2020 by Leandro Renee MD at [facility] Right: Lumbar Vertebrae [place] [employer]ine [id number]# / / Price Lmbr 45mmx5.5 Es2 Cvd - [id number] Implanted:Qty : 1 on 05/12/2020 by Leandro Renee MD at [facility] Right: Lumbar Vertebrae Al Spine [id number] / / Procedures Procedure Name Priority Date/Time Associated Diagnosis Comments CBC WITH AUTO DIFFERENTIAL Routine 06/09/2023 12:36 PM MUSIC PROFESSOR Positive DANI (antinuclear antibody) CBC WITH AUTO DIFFERENTIAL Routine 06/09/2023 12:36 PM MUSIC PROFESSOR Positive DANI (antinuclear antibody) DNA DOUBLE-STRANDED (DSDNA) ANTIBODIES BY CHETAN BAH IFA Routine 06/09/2023 12:36 PM MUSIC PROFESSOR Positive DANI (antinuclear antibody) C4 COMPLEMENT Routine 06/09/2023 12:36 PM MUSIC PROFESSOR Positive DANI (antinuclear antibody) C3 COMPLEMENT Routine 06/09/2023 12:36 PM MUSIC PROFESSOR Positive DANI (antinuclear antibody) from Last 3 Months Results * CBC WITH AUTO DIFFERENTIAL (06/09/2023 12:36 PM MUSIC PROFESSOR) WHITE BLOOD COUNT 5.1 4.5 - 11.0 thou/cu mm 06/09/2023 1:[address] [facility] RED BLOOD COUNT 4.57 4.00 - 5.20 mil/cu mm 06/09/2023 1:[address] [facility] HEMOGLOBIN 14.3 12.0 - 16.0 g/dL 06/09/2023 1:[address] [facility] HEMATOCRIT 42.9 33.0 - 51.0 % 06/09/2023 1:[address] [facility] MCV 94 80 - 100 fL 06/09/2023 1:[address] [facility] MCH 31.3 26.0 - 34.0 pg 06/09/2023 1:[address] [facility] MCHC 33.3 32.0 - 36.0 g/dL 06/09/2023 1:[address] [facility] RDW 14.1 11.5 - 15.5 % 06/09/2023 1:[address] [facility] PLATELET COUNT 268 140 - 440 thou/cu mm 06/09/2023 1:[address] [facility] MPV 9.6 6.5 - 11.0 fL 06/09/2023 1:[address] [facility] NRBC 0.0 % 06/09/2023 1:[address] [facility] ABS NRBC 0.0 thou /cu mm 06/09/2023 1:[address] [facility] % NEUT 52.2 % 06/09/2023 1:[address] [facility] % LYMPH 33.5 % 06/09/2023 1:[address] [facility] % MONO 9.9 % 06/09/2023 1:[address] [facility] % EOS 3.4 % 06/09/2023 1:[address] [facility] % BASO 0.6 % 06/09/2023 1:[address] [facility] % IMMATURE GRAN (METAS,MYELOS,TX OS) 0.4 % 06/09/2023 1:05 PM [facility] ABSOLUTE NEUTROPHILS 2.7 1.7 - 7.0 thou/cu mm 06/09/2023 1:05 PM [facility] ABSOLUTE LYMPHOCYTES 1.7 0.9 - 2.9 thou/cu mm 06/09/2023 1:05 PM [facility] ABSOLUTE MONOCYTES 0.5 <0.9 thou/cu mm 06/09/2023 1:05 PM [facility] ABSOLUTE EOSINOPHILS 0.2 <0.5 thou/cu mm 06/09/2023 1:05 PM [facility] ABSOLUTE BASOPHILS 0.0 <0.3 thou/cu mm 06/09/2023 1:05 PM [facility] ABSOLUTE IMMATURE GRANULOCYTES(MET ,MYELOS,PROS) 0.0 <0.3 thou/cu mm 06/09/2023 1:05 PM [facility] Blood BLOOD SPECIMEN / Unknown Venipuncture / Unknown 06/09/2023 12:36 PM MUSIC PROFESSOR 06/09/2023 12:36 PM [facility] Soco Banuelos MD HEMATOLOGY [facility] SENDOUT INTERNAL ZIP [id number] [place] [id number] * C3 COMPLEMENT (06/09/2023 12:36 PM MUSIC PROFESSOR) C3 COMPLEMENT 141.53 81.10 - 157.00 mg/dL 06/12/2023 10:15 AM [facility] Blood BLOOD SPECIMEN / Unknown Venipuncture / Unknown 06/09/2023 12:36 PM MUSIC PROFESSOR 06/09/2023 12:36 PM MUSIC PROFESSOR Soco Banuelos MD CHEMISTRY [facility] [address] [place] [address], * (ABNORMAL) C4 COMPLEMENT (06/09/2023 12:36 PM MUSIC PROFESSOR) C4 Complement 49.99(H) 12.90 - 39.20 mg/dL 06/12/2023 10:15 AM MUSIC PROFESSOR [facility] Blood BLOOD SPECIMEN / Unknown Venipuncture / Unknown 06/09/2023 12:36 PM MUSIC PROFESSOR 06/09/2023 12:36 PM MUSIC PROFESSOR Soco Banuelos MD CHEMISTRY Performing Organization Address [facility] Co de Phone Number [facility] [address] [place] [address], * (ABNORMAL) DNA DOUBLE-STRANDED (DSDNA) ANTIBODIES BY CRITHIDIA LUCILIAE IFA (06/09/2023 12:36 PM MUSIC PROFESSOR) [place]TI[place] DNA Positive 1:20(A) Negative 06/12/2023 12:28 PM MUSIC PROFESSOR [facility] Blood BLOOD SPECIMEN / Unknown Venipuncture / Unknown 06/09/2023 12:36 PM MUSIC PROFESSOR 06/09/2023 12:36 PM MUSIC PROFESSOR Narrative [facility] - 06/12/2023 12:28 PM MUSIC PROFESSOR Method: DNA Double-Stranded (dsDNA) Antibodies by Crithidia luciliae IFA, IgG, Serum Soco Banuelos MD SEND OUTS [facility] [address] [place] [address], from Last 3 Months Advance Directives Documents on File Type Date Recorded Patient Internet Technology Manager Expl anation Healthcare Directive 05/12/2020 10:22 AM Healthcare Directive 01/26/2016 8:42 AM [facility], 01/11/2016 Latest Code Status on File Code Status Date Activated Date Inactivated Comments Full Code 05/12/2020 2:46 PM 05/14/2020 5:39 PM Question Answer Comments Code Status Discussion: Not Discussed Code Status History Code Status Date Activated Date Inactivated Comments Full Code 05/12/2020 10:31 AM 05/12/2020 2:46 PM Question Answer Comments Code Status Discussion: Not Discussed Care Teams Welder Production [employer] Relationship Specialty Start Date End Date Thais Bingham MD [address] [place] [address] PCP - General 02/07/06 Soco Banuelos MD [address] [place] [address] Rheumatology 06/09/23
--- NOTE | 2023-07-25 16:00 | CRLHL7_ITS ---
For Patients: As a result of the Century Cures Act, medical imaging exams and procedure reports are released immediately into your electronic medical record. You may view this report before your referring provider. If you have questions, please contact your health care provider. BILATERAL SCREENING MAMMOGRAM WITH COMPUTER-AIDED DETECTION AND TOMOSYNTHESIS TECHNIQUE: CC and MLO views were obtained. These mammographic images have been obtained using full-field digital technique. These mammographic images were interpreted with the benefit of computer-aided detection. Breast Tomosynthesis was used in this interpretation. COMPARISON FILM: 07/20/22, 05/26/21, 05/11/20. FINDINGS: There are scattered areas of fibroglandular density. IMPRESSION: There is no radiographic evidence for malignancy. ASSESSMENT: BI-RADS Category 1: Negative RECOMMENDATION: Routine screening mammogram in 1 year. A lay language report of this examination will be provided to the patient. Silvano Goldman M.D. Diagnostic Radiologist [email or web address] SP/Dictated by: Silvano Goldman MD @ 07/26/2023 1:16:00 PM (Electronically Signed)
== END 2023-07-25 15:40 | disposition home or self-care (01) ==
LOC: MAMMO 15:40
PROVIDERS: PCP Family Medicine; Visit Provider Family Medicine
DX: Z12.31 Encounter for screening mammogram for malignant neoplasm of breast (principal)
CPT/HCPCS: 77063; 77067

== ENCOUNTER 2023-09-19 08:30 | Outpatient (RCR) | payer MEDICARE, BC, SELFPAY ==
--- NOTE | 2023-09-05 08:58 | PT.OPEX ---
PT [facility] Outpatient Eval PT [facility] Outpatient Eval Start: 09/05/23 07:35 Freq: Status: Active Protocol: Document 09/05/23 07:35 CLK (Rec: 09/05/23 08:52 CLK [id number]) E-signed By Shayy Gomez PT Physical Therapy Outpatient Evaluation Insurance Information Recert Due Date 11/30/23 Insurance Name Medicare B Medical Diagnosis Janes groin pain Treating Diagnosis Janes inguinal pain Impaired janes hip AROM Impaired janes hip MMT Referring MD Dr Thais Bingham Subjective Subjective Cori reports having janes groin, hip, buttock pain since having her back surgery in 2019. Have been doing stretches and trying to be as active as possible. Saw Dr Faustin and had full back and LE X-Rays and MRI done, have arthritis and bone spurs on the bottom of both hip sockets , but not enough for surgery. I have not yet received results of the MRI. Seeing him later this week. His thoughts were possibly cortisone injections. She is diligent with core and trunk exercises. Pain varies a lot, always present and can be as high as 10/10, even sitting with legs up hurts after an hour or so. She does a series of stretches for neck/ shoulders and back. Walk 2-3 miles per day and do core ex. Nothing for hips. Can barely lift her leg up and out to the side due to groin pain. Pain goes down into her knees, in post hips and buttocks. Pain Comments No pattern of pain reduction. Even has pain moving right away in the morning. Date of Last Physician Visit 07/25/23 Current Work Status Retired Preferred Name Cori Precautions Treatment Precautions/Contraindications Fibromyalgia Sjogrens syndrome Osteopenia IBS OA Rt shoulder scope Lt TKR Spinal stenosis with lumbar fusion Weight Bearing Status Full Weight Bearing Therapy Limitations/Systems Review Vision Assessment Assessment/Impression 68 yo female with DX of janes groin pain. She arrived to dept via IND ambulation without any AD. She presents with WBOS and shortened stride , but symmetric WB. She can sit to stand without use of UE on chair arms with symmetric WB. She can deep squat to approximately 90 deg knee flex . SLS 10+ seconds janes. She cannot perform hip circles in stance due to pain. She cannot tolerate PROM of hips in supine other than straight line flexion. Hip ADD limited 0-15 deg janes. Hip IR 0-5 deg with severe pain. Light pressure at pelvic anominants causes severe pain. Light palpation pressure caused report of severe pain increase . Hip EXT beyond 3 deg caused severe pain. MMT of at least 2 /5, but could not execute with any significant resistance, as it caused severe pain in all planes. She did state that long leg distraction felt good. She may benefit from continued skilled physical therapy to educate in low level stretches/positional stretching, pool therapy, cupping trial, k-tape trial. Thank you for this referral. Plan of Care Rehabilitation Potential Good Physical Therapy Goals In 4-6 visits, Cori will be able to report: 1. IND in proper execution of HEP with emphasis on pace, HOLD, reps and alignment. 2. Overall pain reduction by 50% 3. AROM janes hip WNL and pain free 4. Improved ease of all self cares and ADL's by reported 50 % Coordination/Communication With Referral Source Treatment Plan/Direct Interventions Joint Mobilization,Manual Therapy,Neuromuscular Re-ed, Self-Care/Home Management, Therapeutic Activities, Therapeutic Exercises Frequency/Duration 1X/Wk for 10 visits Patient Will Be Discharged From Therapy Completion of LTG(s),Skills Plateau,Independent w/HEP, Independently Progressing Evaluation Billing Untimed Code Treatment Minutes 25 Complexity Moderate Certification Information Initial Certification Date 09/05/23 Ending Certification Date 11/30/23 Provider Signature Shows Agreement With POC & Medical Necessity Physician Signature & Date Requested Please Sign/Date Here Physician Comment/Change : Physician NPI Number #
== END 2024-01-17 23:59 | disposition home or self-care (01) ==
PROVIDERS: PCP Family Medicine; Visit Provider Family Medicine
DX: R10.31 Right lower quadrant pain (principal); R10.32 Left lower quadrant pain; Z51.89 Encounter for other specified aftercare
CPT/HCPCS: 97110; 97162

== ENCOUNTER 2024-02-26 07:43 | Emergency (ER) | payer MEDICARE, BC, SELFPAY ==
[2024-02-26 08:00] VITALS: BP 158/81; PULSE 73; RESP 16; TEMP 36.4; O2SAT 98; BMI 25.4
--- NOTE | 2024-02-26 09:01 | ED.ABDPAIN ---
HPI - Abdominal Pain General Date Seen: 02/26/24 Chief Complaint: Abdominal Pain Stated Complaint: bleeding from rectum Time Seen by Provider: 02/26/24 08:07 Source: patient Mode of arrival: ambulatory Limitations: no limitations History of Present Illness HPI narrative: Patient is a 68-year-old female presenting to the emergency department for upper abdominal pain. She states symptoms started yesterday and is throughout her abdomen but worse in the upper abdominal region. She states this feels like previous time she has had food poisoning. Initially she was having constipation so took a Dulcolax and mineral or ill at 18:00. Started about 17:00 yesterday and has improved today but she was concerned because she noticed blood in her stool today. Has had no previous abdominal surgeries. Denies fevers but did have chills yesterday. Is still feeling slightly chilled today but not as bad. Does have IBS and has had both formed stools and watery stools today. She states the watery stools were very abnormal for her IBS. Can not think of anything that will cause a food poisoning as she did not eat much yesterday. Does have a slight headache right now feels dehydrated. States she feels slightly lightheaded and dizzy but not any different than her baseline. Describes the pain as is pinching sensation. Has had episodes of vomiting and is currently nauseated. States yesterday the pain was so bad she could not get up off the bathroom floor. Has noticed blood in her stool. Related Data Home Medications ?Medication ?Instructions ?Recorded ?Confirmed zinc 1 tab PO DAILY 07/25/22 02/26/24 cholecalciferol (vitamin D3) 50 50 mcg PO QDAY 09/06/22 02/26/24 mcg (2,000 unit) capsule (Vitamin D3) hydrochlorothiazide 25 mg tablet 12.5 mg PO DAILY 09/06/22 02/26/24 magnesium 250 mg tablet 250 mg PO QDAY 09/06/22 02/26/24 Previous Rx's ?Medication ?Instructions ?Recorded ciprofloxacin HCl 500 mg tablet 500 mg PO BID #10 tabs 02/26/24 (Cipro) ondansetron 4 mg disintegrating 4 mg PO Q6H #20 tabs 02/26/24 tablet Allergies Allergy/AdvReac Type Severity Reaction Status Date / Time Sulfa (Sulfonamide Allergy Mild rash Verified 02/26/24 08:01 Antibiotics) nitrofurantoin Allergy Rash Verified 02/26/24 08:01 [From Macrobid] prednisone Allergy throat and Verified 02/26/24 08:01 chest tightness Review of Systems Status of ROS Reports: 10 or more systems reviewed and unremarkable except as noted in History and below [facility] Medical History Fibromyalgia ?M79.7 - Fibromyalgia (ICD-10) Symptoms of urinary tract infection ?R39.9 - Unspecified symptoms and signs involving the genitourinary system (ICD-10) Sjogren's syndrome ?M35.00 - Sjogren syndrome, unspecified (ICD-10) Right inguinal pain ?R10.31 - Right lower quadrant pain (ICD-10) Osteopenia ?M85.80 - Other specified disorders of bone density and structure, unspecified site (ICD-10) Osteoarthritis ?M19.90 - Unspecified osteoarthritis, unspecified site (ICD-10) Normal colonoscopy (2012) Irritable bowel syndrome ?K58.9 - Irritable bowel syndrome without diarrhea (ICD-10) Benign paroxysmal positional vertigo ?H81.10 - Benign paroxysmal vertigo, unspecified ear (ICD-10) Fibromyalgia ?M79.7 - Fibromyalgia (ICD-10) Degenerative lumbar spinal stenosis (~2017) ?M48.061 - Spinal stenosis, lumbar region without neurogenic claudication (ICD-10) Surgical History History of arthroscopy of right shoulder (11/09/22) ?Z98.890 - Other specified postprocedural states (ICD-10) History of excision of mass (2012) ?Z98.890 - Other specified postprocedural states (ICD-10) History of spinal surgery (~2019) ?Z98.890 - Other specified postprocedural states (ICD-10) Lipoma of back (07/19/12) ?D17.1 - Benign lipomatous neoplasm of skin and subcutaneous tissue of trunk (ICD-10) History of hemorrhoidectomy (~1988) ?Z98.890 - Other specified postprocedural states (ICD-10) 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) ?Z96.652 - Presence of left artificial knee joint (ICD-10) History of appendectomy (1983) ?Z90.49 - Acquired absence of other specified parts of digestive tract (ICD-10) Social History Smoking Status: Former smoker What tobacco products do you use: cigarettes Smoking quit date/years: >15 years ago Do you use any of these nicotine containing products: None Second hand tobacco smoke exposure: No How often do you have a drink containing alcohol: 4 or more times a week How many standard drinks containing alcohol do you have on a typical day: 1 or 2 How often do you have six or more drinks on one occasion: Never AUDIT-C Alcohol total score: 4 Non-prescribed substance use: denies use Caffeine: Yes Exam Narrative: Exam Narrative: Const: Well-nourished, Well-developed, in mild distress Eyes: PERRL, no conjunctival injection, and symmetrical lids HENT: Atraumatic external nose and ears. Moist mucous membranes. Neck: Symmetric, trachea midline, No thyromegaly. CVS: RRR, No murmurs or gallops. Peripheral pulses 2+ and equal in all extremities RESP: Unlabored respiratory effort. Clear to auscultation bilaterally. GI: Diffuse abdominal tenderness, Nondistended, No rebound or guarding. MSK:Extremities w/o deformity, Normal Active ROM Skin: Warm, Dry. No rashes or lesions. Neuro: Normal Muscle tone, No focal neurological deficits. Psych: Awake, Alert, & Oriented x3. Appropriate mood and affect. Const: Vital Signs, click to edit/add: Vital Signs - 24 hr 02/26/24 08:00 02/26/24 09:32 02/26/24 10:32 Temperature 97.6 F Pulse Rate 71 72 Pulse Rate [Pulse Oximeter] 73 Respiratory Rate 16 18 14 Blood Pressure 158/79 H 142/83 H Blood Pressure [Ri ght Upper Arm] 158/81 H Pulse Oximetry 98 97 97 Oxygen Delivery Me thod Room Air Room Air Course Vital Signs Vital signs: Initial Vital Signs Temperature 97.6 F 02/26/24 08:00 Temperature Source Temporal Artery Scan 02/26/24 08:00 Pulse Rate 73 02/26/24 08:00 Pulse Rhythm Regular 02/26/24 08:00 Respiratory Rate 16 02/26/24 08:00 Blood Pressure 158/81 H 02/26/24 08:00 Blood Pressure Mean 106 H 02/26/24 08:00 Blood Pressure Position Sitting 02/26/24 08:00 Pulse Oximetry 98 02/26/24 08:00 Oxygen Delivery Method Room Air 02/26/24 08:00 Vital Signs Temperature 97.6 F 02/26/24 08:00 Pulse Rate 73 02/26/24 08:00 Respiratory Rate 16 02/26/24 08:00 Blood Pressure 158/81 H 02/26/24 08:00 Pulse Oximetry 98 02/26/24 08:00 Oxygen Delivery Method Room Air 02/26/24 08:00 Temperature 97.6 F 02/26/24 08:00 Pulse Rate 72 02/26/24 10:32 Respiratory Rate 14 02/26/24 10:32 Blood Pressure 142/83 H 02/26/24 10:32 Pulse Oximetry 97 02/26/24 10:32 Oxygen Delivery Method Room Air 02/26/24 10:32 Medications Administered Medications: Discontinued Medications Generic Name Dose Route Start Last Admin Trade Name Jackson PRN Reason Stop Dose Admin Lactated Ringer's 1,000 mls @ 1,000 mls/hr 02/26/24 08:38 02/26/24 10:56 Lactated Ringers 1000 Ml IV 02/26/24 09:37 Infused .Q1H ONE Infusion Lidocaine/Aluminum/Magnesium/Simeth 30 ml 02/26/24 08:38 02/26/24 09:14 Gi Cocktail (Visc Lido/Antacid) 30 Ml PO 02/26/24 08:39 30 ml ONCE ONE Administration Ondansetron HCl 4 mg 02/26/24 08:38 02/26/24 09:14 Ondansetron 2 Mg/Ml Inj IVP 02/26/24 08:39 4 mg ONCE ONE Administration MDM - Abdominal Pain MDM Narrative Medical decision making narrative: Patient is a 68-year-old female presenting to the emergency department for abdominal pain. At this time differential includes SBO, gastroenteritis, cholecystitis, pancreatitis. Less likely to be appendicitis considering location. Considering she has had some formed stools unlikely to be C diff. this could be an abnormal presentation for ACS. There is concerned about a GI bleed at this time. Will do a CT scan for further evaluation. Will also order a CBC, CMP, COVID/flu/RSV, magnesium, urinalysis, troponin, EKG, lipase. L of fluids given along with a GI cocktail and some Zofran for her nausea. Patient was feeling better after the medication but she is feeling tired. Lab work all returned showing no concerning abnormalities. Her BUN to creatinine ratio was 18 so no obvious signs of an upper GI bleed. Her hemoglobin is 15. Is not showing any signs of developing anemia at this time. Considering she has bright red blood this is likely a lower GI bleed. There was blood seen on the stool occult test. COVID/flu/RSV negative. EKG and troponin showed no concerning abnormalities. Do not believe repeat troponin is necessary since symptoms have been going on since yesterday and CT show signs of colitis consistent with her symptoms. The CTA for GI bleed returned showing colitis the proximal and mid descending colon. The cannot states if it is infectious or inflammatory but there is no active contrast extravasation. She does have a 3 mm pulmonary nodule in 6 mm hepatic nodule that can be follow-up outpatient and does not require any emergent issues. Considered she has bloody diarrhea was occult blood this time I do think also start her on antibiotics. She is agreeable to this plan. States she has had no issues with antibiotics in the past. Lab Data Labs: Lab Results 02/26/24 02/26/24 02/26/24 Range/Units 08:30 09:00 09:22 WBC 6.06 (4.50-11.00) K/uL RBC 4.78 (4.00-5.20) m/uL Hgb 15.0 (12.0-16.0) gm/dL Hct 45.6 (33.0-51.0) % MCV 95 (80-100) fL MCH 31 (26-34) pg MCHC 33 (32-36) gm/dL RDW Coeff of Ramon 13.4 (11.5-15.5) % Plt Count 228 (140-440) K/uL Neut % (Auto) 68.4 (42.0-72.0) % Lymph % (Auto) 21.3 (20-44) % [place] % (Auto) 7.8 (0.0-11.0) % Eos % (Auto) 1.8 (0.0-7.0) % Baso % (Auto) 0.5 (0.0-3.0) % Neut # (Auto) 4.15 (1.7-7.0) K/uL Lymph # (Auto) 1.29 (0.90-2.90) K/uL [place] # (Auto) 0.50 (0.00-0.90) K/UL Eos # (Auto) 0.11 (0.00-0.50) K/uL Baso # (Auto) 0.03 (0.00-0.30) K/uL Abs Immat Gran (auto) 0.01 (0.00-0.30) K/uL Imm/Tot Granulo (auto) 0.2 % Sodium 139 (135-149) mmol/L Potassium 3.6 (3.6-5.1) mmol/L Chloride 105 (96-114) mmol/L Carbon Dioxide 27 (20-32) mmol/L Anion Gap 7 (7-15) mEq/L BUN 10 (7-30) mg/dL Creatinine 0.7 (0.5-1.5) mg/dL Estimated Creat Clear 41.40 Estimated GFR 93 ml/min Glucose 102 (60-115) mg/dL Calcium 9.7 (8.4-10.6) mg/dL Magnesium 2.3 (1.5-2.6) mg/dL Total Bilirubin 0.7 (0.1-1.5) mg/dL AST 31 (12-35) U/L ALT 22 (4-35) U/L Alkaline Phosphatase 81 (40-150) U/L Total Protein 7.2 (6.0-8.3) g/dL Albumin 4.6 (3.3-5.0) g/dL Lipase 45 (23-300) U/L Urine Color Light yellow (Yellow) Urine Appearance Clear (Clear) Urine pH 7.5 (5.0-8.5) Ur Specific [place] 1.010 (1.000-1.030) Urine Protein Negative (Negative) Urine Glucose (UA) Negative (Negative) Urine Ketones Negative (Negative) Urine Blood Trace-intact A (Negative) Urine Nitrite Negative (Negative) Urine Bilirubin Negative (Negative) Urine Urobilinogen 0.2 (0.2-1.0) Ur Leukocyte Esterase Negative (Negative) Urine RBC 0-2 (0-2) Urine WBC 0-2 (0-5) Ur Squamous Epith Cells Few (None-Few) Urine Bacteria None (None) Stool Occult Blood Positive A (Negative) SARS-CoV-2 (PCR) Negative SARS-CoV-2 (Negative) Influenza Type A (PCR) Negative PCR FLU A (Negative) Influenza Type B (PCR) Negative PCR FLU B (Negative) RSV (PCR) Negative PCR RSV (Negative) POC Creatinine 0.9 (0.6-1.3) mg/dl POC Troponin I 0.00 L (0.01-0.04) ng/ml Imaging Data CTA abdomen and pelvis: Attestation: I have reviewed the pertinent imaging results. Radiologist's impression: 1. Colitis of the proximal-mid descending colon, likely infectious or inflammatory in etiology. No active contrast extravasation. 2. 3 millimeter pulmonary nodule in the left lower lobe. No routine follow-up is indicated in low risk individuals. In high-risk individuals, consider an optional CT chest in 12 months. 3. 6 millimeter enhancing capsular nodule along hepatic segment 5. No routine follow-up is recommended in low risk individuals given that this measures less than 1 centimeter. In high-risk individuals, a liver protocol MRI is recommended in 3-6 months. Please note that all CT scans at this facility use dose modulation, iterative reconstruction, and/or weight-based dosing when appropriate to reduce radiation dose to as low as reasonably achievable. Dictated by Oliver Matthew MD @ 02/26/2024 10:48:17 AM ECG Data Attestation: I personally reviewed and interpreted this ECG as follows: Prior ECG tracings: available for review Interpretation: Normal sinus rhythm with rate of 70 beats per minute, normal intervals, normal axis, no ST or T-wave abnormalities. Appears similar previous EKG on file no other than what appears to be a new right bundle-branch block Discharge Plan Discharge Clinical Impression: Colitis Patient Disposition: Home, Self-Care Condition: Improved Instructions: Colitis (ED) Additional Instructions: I will start you on antibiotics at this time for your colitis. Take antibiotics as directed. Return to emergency department for new or worsening symptoms. You did have small nodules in your liver and lungs that he not need follow-up unless you are at high risk for cancer. As far as I can tell you are not a high risk but he should follow up with primary care provider and have them determine. Prescriptions: New ondansetron 4 mg tablet,disintegrating 4 mg PO Q6H Qty: 20 0RF ciprofloxacin HCl [Cipro] 500 mg tablet 500 mg PO BID Qty: 10 0RF No Action cholecalciferol (vitamin D3) [Vitamin D3] 50 mcg (2,000 unit) capsule 50 mcg PO QDAY magnesium 250 mg tablet 250 mg PO QDAY hydrochlorothiazide 25 mg tablet 12.5 mg PO DAILY zinc 1 tab PO DAILY Follow Up/Referrals: Thais Bingham MD [Primary Care Provider] - Stand Alone Forms: [email or web address] Info Instructions
--- OUTSIDE RECORDS SUMMARY | 2024-02-26 09:06 | XMS_ITS | Continuity of Care Document ---
Author Organization [facility] Address [address] [place] [address] Phone Care Team Providers Care Brand Specialist Name Role Phone Ezequiel Gregory Unavailable Unavailable [...] Available - Active Procedures Procedure Date Office/Outpatient Visit,Alvarez Ramirez 2018 Advance Directives Directive Yes / No Effective Date File Name No Information Encounters Encounter Description Practice Location Reason(s) For Visit Diagnoses Date Provider Providers Copied on Encounter [facility], [address], [facility] [place] [id number], [place] tel:[phone] [facility] No Information [address]. [facility], [address], [place], [place], [id number] , [place]. [phone] Office/Outpat ient Visit,[facility], [place] [facility], [address], [place], [id number], [place] tel:[phone] [facility] [place] CervicalgiaLow back pain 9 [address]. [facility], [address], [place], [place], [id number] , [place]. [phone] Referring Provider: Thais Bingham , [address], [place], [address]. tel:[phone] Family History Family Member Type Diagnosis Age At Onset No Information Payers Payer name Insurance type Covered alliance party ID Olga cam(s) [facility] [id number] Medicare Agustin [id number] 1 Social History Type Description Quantity Date [...]
--- OUTSIDE RECORDS SUMMARY | 2024-02-26 09:06 | XMS_ITS | Clinical Summary ---
Author Organization [facility] Address [place], [place] [address] Care Team Providers Care Shucker Name Role Phone Thais Bingham MD Primary Care Provide r Soco Banuelos MD Unavailable [phone] Allergies Active Allergy Reactions Criticality Noted Date Comments Nitrofurantoin Nausea And Vomiting 12/30/2006 Prednisone Chest Pain 04/10/2018 Sulfa (Sulfonamide Antibiotics) Nausea And Vomiting 12/30/2006 Hylan G-F 20 Rash 08/28/2018 Medications Medication Sig Dispensed Refills Start Date End Date Status betamethasone dipropionate 0.05% (DIPROSONE LOTION 0.05%) lotion 10/02/2020 Active medication order composer Take 30 mg by mouth once daily. Zinc 0 08/26/2021 Active cholecalciferol (Vitamin D-3) 2,000 unit capsule Take 1 Capsule (2,000 units) by mouth once daily. 0 07/29/2022 Active polyethylene glycol-electrolyte (GOLYTELY) 236-22.74-6.74 -5.86 gram suspensionIndicatio ns:Encounter for screening colonoscopy Drink 2 liters the day before colonoscopy and drink 2 liters 6 hours before colonoscopy appointment 4000 mL 09/04/2023 Active medication order composer Take 250 mg by mouth once daily. Magnesium 07/27/2023 Active hydroCHLOROthiazide (HCTZ) 25 mg tabletIndications:H TN (hypertension) Take 0.5 Tablets (12.5 mg) by mouth once daily. 45 Tablet 3 07/27/2023 Active amoxicillin (AMOXIL) 250 mg capsuleIndications: Recurrent UTI Take 1 orally after intercourse 30 Capsule 2 07/27/2023 Active ALPRAZolam (XANAX) 0.25 mg tabletIndications:F ear of flying Take 1 Tablet (0.25 mg) by mouth every 6 hours if needed for Anxiety (fear of flying). 10 Tablet 12/22/2023 Active Active Problems Problem Noted Date Diagnosed Date Age-related osteoporosis wit hout current pathological fracture 04/26/2018 Hyperlipidemia 02/04/2016 Routine adult health maintenance 06/19/2013 Overview: Colonoscopy 06/2013 normal repeat in 10 years HTN (hypertension) 06/07/2011 Fibromyalgia 10/27/2009 Osteoarthritis of knee 10/27/2009 Spondylolisthesis of lumbar region Resolved Problems Problem Noted Date Diagnosed Date Resolved Date Lipidemia 06/07/2011 02/04/2016 Mixed hyperlipidemia 04/01/2008 011 Immunizations Name Administration Dates Next Due COVID-19 vaccine (Lucernex 30mcg/0.3mL) P F, MDV 09/24/2020,09/03/2020 Influenza, Inactivated IIV3 (Age 65+ Years) [...] 07/03/1975 Smokeless Tobacco: Never Tobacco Cessation:Counseling Given: Yes Alcohol Use Standard Drinks/Week Comments Yes 5 (1 standard drink = 0.6 oz pur e alcohol) wine with dinner PHQ-2 Answer Date Recorded PHQ-2 TOTAL SCORE 0 07/27/2023 Social Connections Answer Date Recorded Frequency of [...] Sign Reading Time Taken Comments Blood Pressure 125/66 10/26/2023 8:50 AM CDT Pulse 65 10/26/2023 8:50 AM CDT Temperature 36.4 ??C (97.6 ??F) 10/19/2023 8:30 AM CD T Respiratory Rate 14 10/26/2023 8:50 AM CDT Oxygen Saturation 98% 10/26/2023 8:50 AM CDT Inhaled Oxygen Concentration - - Weight 63.7 kg (140 lb 6.4 oz) 08/31/2023 8:20 A M [employer] Height 156.2 cm (5' 1.5) 07/27/2023 10:52 AM CS T Body Mass Index 26.1 07/27/2023 10:52 AM [facility] Plan of Treatment Upcoming Encounters Date Type Department Care Team (Late st Contact Info) Description 06/10/2024 8:30 AM [facility] [employer] [facility]NC[facility] Telemedicine [facility] [address] [facility] [address] [facility] [address] [place] [address] Soco Banuelos MD [address] [facility] [address] [place] [address] Health Maintenance Due Date Last Done Comments Zoster (shingles) series for age 50+ (1 of 2) 2003 Pneumococcal series for age 65+ (1 of 1 - PCV) 2018 COVID-19 vaccine series (2022- season) 2023 06/17/2021, 09/24/2020, 09/03/2020 Influenza for age 65+ 03/03/2024 04/13/2020 Mammogram for age 45-75 07/25/2024 07/25/19, 07/20/2022, 05/26/2021, Additional history exists BMI (ht and wt on same day) for age 18+ 07/27/2024 07/27/2023, 11/03/2022, 10/22/2021, Additional history exists Depression screening for age 12+ 07/27/2024 07/27/2023, 07/27/2023, 11/03/2022, Additional history exists Medicare Wellness for age 65+ 07/27/2024, 10/22/2021, 03/21/2019 Lipids for age 45-75 07/27/2028 07/27/2023, 11/03/2022, 01/10/2022, Additional history exists Tetanus booster 10/23/2031 10/22/2021, 12/2010, 06/07/2011, Additional history exists Colonoscopy through age 75 10/25/203310/25, 10/26/2023, 10/26/2023, Additional history exists Hepatitis C screening for ag e 18-79 Completed 03/21/2019 Tdap Completed 10/22/2021, 06/07/2011 DEXA/DXA scan for age 65+ Completed 2023, 04/10/2018, 03/21/2013, Additional history exists Goals Goal Patient Goal Type Associated Problems Recent Progress Patient-Stated? Author BLOOD PRESSURE - Maintains BP less than 140/90 Blood Pressure No Alice Garcia, RENU Medical Devices Implanted Type Area Coordinator Of Genetic Services Device Identifier Shelf Expiration Date Model / Serial / Lot Bone 1-4mm 30cc Medtronic Chips Canclls Freeze Dried - [id number] Implanted:Qty : 1 on 05/12/2020 by Leandro Renee MD at [facility] Right: Lumbar Vertebrae Medtronic Spine/Ortho 11/05/2024 [id number] / / [id number] Bone Matrix 10cc Progenix Plusputty Dbm - [id number] Implanted:Qty : 1 on 05/12/2020 by Leandro Renee MD at [facility] Right: Lumbar Vertebrae Medtronic Spine/Ortho 12/25/2021 [id number]# / / [id number] Bone Matrix Sm Infuse Bmp - [id number] Implanted:Qty : 1 on 05/12/2020 by Leandro Renee MD at [facility] Right: Lumbar Vertebrae Medtronic Spine/Ortho 04/01/2022 [id number]# / / [id number] Elite Spacer - [id number] Implanted:Qty : 1 on 05/12/2020 by Leandro Renee MD at [facility] Right: Lumbar Vertebrae [employer] 12/31/2024 [id number] / / [id number] Screw Lmbr Mantjarett Redux - [id number] Implanted:Qty : 4 on 05/12/2020 by Leandro Renee MD at [facility] Right: Lumbar Vertebrae Al Spine [id number]# / / Screw Lmbr 7.5x50mm Es2 Va Mis - [id number] Implanted:Qty : 4 on 05/12/2020 by Leandro Renee MD at [facility] Right: Lumbar Vertebrae Al Spine [id number]# / / Price Lmbr 40mmx5.5 Es2 Cvd - [id number] Implanted:Qty : 1 on 05/12/2020 by Leandro Renee MD at [facility] Right: Lumbar Vertebrae Al Spine [id number]# / / Price Lmbr 45mmx5.5 Es2 Cvd - [id number] Implanted:Qty : 1 on 05/12/2020 by Leandro Renee MD at [facility] Right: Lumbar Vertebrae Al Spine [id number] / / Procedures Procedure Name Priority Date/Time Associated Diagnosis Comments COLONOSCOPY SCREENING Routine 10/26/2023 7:28 AM CDT Screening for colon cancer XR DXA BONE DENSITY 2 SITES AXIAL Routine 07/27/2023 1:39 PM [employer] Osteoporosis, unspecified osteoporosis type, unspecified pathological fracture presence LIPID PANEL W REFLEX MEASURED LDL Routine 07/27/2023 12:04 PM [employer] Lipid screening SCAN-MAMMOGRAPHY REPORT 07/25/2023 12:00 AM [employer] ANTI HCV Routine 03/21/2019 9:11 AM CDT Encounter for hepatitis C screening test for low risk patient from Last 3 Months or Most Recently Relevant to Health Maintenance Results * COLONOSCOPY (10/26/2023 7:57 AM CDT) 10/26/2023 7:57 AM CDT Narrative Transcriptions Zeferino Peterson MD - 10/26/2023 8:39 AM CDT Patient Name: Petra Loja Procedure Date: 10/26/2023 Gender: Female Date of : 1955 Admit Type: Outpatient Procedure: Colonoscopy Proceduralist: Zeferino Peterson MD , Thania Melendez (Nurse), Chiquita Hernandez (Nurse) Indications/Pre-Op Diagnosis: Screening for colorectal malignant neoplasm, Last colonoscopy: June 2013 Medications: Fentanyl 200 micrograms IV, Midazolam 3 mgIV, The level of sedation administered wasmoderate Procedure Description: The patient had risks, benefits and alternatives explained to andgave informed consent. The patient had a stable cardiopulmonary status and judged an adequate candidate for conscious sedation. The [id number] was passed through the anus and advanced to the cecum, identified by appendiceal orifice and ileocecal valve. Thecolonoscopy was performed without difficulty. The patient tolerated the procedure well. The quality of the bowel preparation was good. The ileocecal valve, appendiceal orifice, and rectum were photographed. Complications: No immediate complications. Estimated Blood Loss & Specimen: Estimated blood loss: none. Specimen collected - None Findings: The perianal and digital rectal examinations were normal. Scattered small-mouthed diverticula were found in the sigmoidcolon. The exam was otherwise without abnormality on direct and retroflexion views. Impressions/Post-Op Diagnosis: - Diverticulosis in the sigmoid colon. - The examination was otherwise normal on direct and retroflexionviews. - No specimens collected. Recommendation: - Patient has a contact number available for emergencies. The signsand symptoms of potential delayed complications were discussed with the patient. Return to normal activities tomorrow. Written discharge instructions were provided to the patient. - Resume previous diet. - Continue present medications. - Repeat colonoscopy in 10 years for screening purposes. - Patient's sedation for a repeat study will require Anesthesia staff assistance. Moderate Sedation: A time out was performed before the procedure. Moderate (conscious) sedation was administered by the endoscopy nurse and supervised bythe endoscopist. The following parameters were monitored: oxygensaturation, heart rate, blood pressure, EKG, CO2, respiratory rate, adequacy of pulmonary ventilation and reponse to care. Please refer to the patient's medical record flowsheets and nursing notes for moderate sedation details. Total physician intraservice time was 20 minutes. Zeferino Peterson MD 10/26/2023 8:39:24 AM This report has been signed electronically. Note Initiated On: 10/26/2023 7:57 AM Procedure Code(s): --- Professional --- 54616, Colonoscopy, flexible; diagnostic, including collection of specimen(s) bybrushing or washing, when performed (separateprocedure) Diagnosis Code(s): --- Professional --- Z12.11, Encounter for screening formalignant neoplasm of colon K57.30, Diverticulosis of large intestine without perforation or abscess withoutbleeding CPT copyright 2022 [employer] [place] [employer]. All rights reserved. The codes documented in this report are preliminary and upon adjunct professor reviewmay be revised to meet current compliance requirements. Scope In: 8:14:15 AM Scope Withdrawal Time 0 hours 7 minutes 27 seconds Scope Out: 8:32:15 AM Zeferino Peterson MD PROCEDURE ORD * (ABNORMAL) XR DXA BONE DENSITY 2 SITES AXIAL (07/27/2023 1:39 PM [facility] [employer] [facility]NCIL) Anatomical Region Laterality Modality Spine, HIPS, HIPL, HIPR Other Impressions 08/01/2023 2:36 PM [employer]NCIL Osteopenia. RECOMMENDATIONS: The National Osteoporosis Foundation recommends pharmacologic treatment for patients with T-scores of -2.5 or less, patients with prior history of fragility fractures, or patients with 10-year probability of greater than 3% at hips or greater than 20% of suffering major osteoporotic fractures. Recommend continued optimization of calcium and vitamin D intake through dietary means and/or supplementation and regular exercise. Repeat scan recommended in 3-5 years. Candi Driver PA-C [facility] 08/01/2023 Narrative 08/01/2023 2:36 PM DIRECTOR SAFETY COUNCIL For Patients: Results are automatically released to your [facility] ([employer]) account once available, in compliance with federal regulations. This means that you may see your results before your provider has had a chance to review them. Please allow 2-3 business days for your provider to comment on the results. XR DXA Bone Mineral Density (BMD) EXAM LOCATION: [address] [address] PATIENT NAME: Petra Loja DATE OF : 1955 EXAM DATE: 07/27/2023 REQUESTING PROVIDER: Thais Bingham MD GENDER AT : female HEIGHT: 5' 1.5 (07/27/2023) WEIGHT: ??139 lb (07/27/2023) MENOPAUSAL STATUS: Postmenopausal RACE/ETHNICITY: White RISK FACTORS: Family History of Osteoporosis, Smoking (prior), and White Race CURRENT MEDICATION FOR BONE LOSS: NONE INDICATION: Osteoporosis, unspecified osteoporosis type, unspecified pathological fracture presence COMPARISON DATE(S): 2018 DXA scans are compared to prior studies for a patient only when the two (or more) studies were performed on the same scanner. It is not possible to compare data generated on one scanner to data from another because there are not standards in DXA equipment. This applies even if the two scanners are made by the same biomathematician. PROCEDURE: Dual-energy x-ray absorptiometry performed with routine technique. Reporting is completed in the form of a T-score. The T-score represents the standard deviation from peak bone mass based on young healthy adult. A Z-score is used for diagnosis in premenopausal women, and for men under the age of 50. FINDINGS: RESULT LUMBAR SPINE L1 - L2 ??BMD: 1.037 g/cm2 T-Score: - 1.1 Z-Score: + 0.6 Change from prior in 2018: ??Increase 10.0%. RESULTS FEMUR Left femoral neck BMD: 0.759 g/cm2 T-Score: - 2.0 Z-Score: - 0.3 Change from prior in 2018: ??Increase 11.9%. Right femoral neck BMD: 0.837 g/cm2 T-Score: - 1.4 Z-Score: + 0.3 Change from prior in 2018: ??Increase 6.4%. Left hip BMD: 0.699 g/cm2 T-Score: - 2.4 Z-Score: - 0.9 Change from prior in 2018: ??Increase 1.5%. Right hip BMD: 0.781 g/cm2 T-Score: - 1.8 Z-Score: - 0.3 Change from prior in 2018: ??Decrease 1.4%. WHO criteria: Normal: T-score at or above -1 SD Osteopenia: T-score between -1.1 and -2.4 SD Osteoporosis: T-score at or below -2.5 SD FRAX RISK CALCULATION (USED FOR OSTEOPENIA ONLY): 10-year probability of major osteoporotic fracture: 12.1%. 10-year probability of hip fracture: 2.4%. Thais Bingham MD DEXA * (ABNORMAL) LIPID PANEL W REFLEX MEASURED LDL (07/27/2023 12:04 PM DIRECT[facility]Y [facility]NCIL) [facility] CHOLESTEROL,TOTAL 292(H) 100 - 199 mg/dL 07/27/2023 10:25 PM [facility]Y [facility]NCIL [facility] Comment: Cholesterol, Total Reference Ranges Desirable <200 mg/dL Borderline 200-239 mg/dL High >=240 mg/dL TRIGLYCERIDES 107 <150 mg/dL 07/27/2023 10:25 PM DIRECTOR SAFETY COUNCIL [facility] HDL CHOLESTEROL 71 >40 mg/dL 10:25 PM [facility]NCIL [facility] NON-HDL CHOLESTEROL 221(H) <145 mg/dl 07/27/2023 10:25 PM [facility]AF[facility]NCIL [facility] CHOL/HDL RATIO 4.11 <4.50 07/27/2023 10:25 PM [facility]NCIL [facility] LDL CHOLESTEROL 200(H) <=130 mg/dL 07/27/2023 10:25 PM DIRECT[facility] SAFETY COUNCIL [facility] VLDL CHOLESTEROL 21 <=30 mg/dL 07/27/2023 10:25 PM [facility]NCIL [facility] PROVIDER ORDERED STATUS RANDOM 07/27/2023 10:25 PM [facility]NCIL [facility] Blood BLOOD SPECIMEN / Unknown Venipuncture / Unknown 07/27/2023 12:04 PM [facility] [facility]NCIL 07/27/2023 12:06 PM DIRECT[employer]NCIL Thais Bingham MD CHEMISTRY [facility] [address] [place] [address], * SCAN-MAMMOGRAPHY REPORT (07/25/2023 12:00 AM DIRECT[facility]Y COUNCIL) Anatomical Region Laterality Modality Other Scanner OTHER * ANTI HCV (03/21/2019 9:11 AM CDT) HEPATITIS C ANTIBODY Non-React ricky Non-React ricky 03/21/2019 2:05 PM CDT [facility] Comment:Antibodies to HCV no t detected; does not exclude the possibility of exposure to HCV. Blood BLOOD SPECIMEN / Unknown Venipuncture / Unknown 03/21/2019 9:11 AM CDT 03/21/2019 9:12 AM CDT Thais Bingham MD SEND OUTS [facility] [address] [place] [address], from Last 3 Months or Most Recently Relevant to Health Maintenance Advance Directives Documents on File Type Date Recorded Patient Industrial Equipment Mechanic Expl anation Healthcare Directive 05/12/2020 10:22 AM Healthcare Directive 01/26/2016 8:42 AM [facility], 01/11/2016 * Full Code (Latest Code Status on File) Date Activated Date Inactivated Comments 05/12/2020 2:46 PM 05/14/2020 5:39 PM Question Answer Comments Code Status Discussion: Not Discussed * Full Code Date Activated Date Inactivated Comments 05/12/2020 10:31 AM 05/12/2020 2:46 PM Question Answer Comments Code Status Discussion: Not Discussed Care Teams Shucker Relationship Specialty Start Date End Date Thais Bingham MD [address] [place] [address] PCP - General 02/07/06 Soco Banuelos MD [address] [place] [address] Rheumatology 06/09/23
[2024-02-26] MEDS: LACTATED RINGERS 1000 ML 1,000 ML IV (09:14)
[2024-02-26] MEDS: ONDANSETRON 2 MG/ML inj 4 MG IVP (09:14)
[2024-02-26] MEDS: GI COCKTAIL (VISC LIDO/ANTACID) 30 ML PO (09:14)
[2024-02-26 09:22] LABS: Basophils Absolute Auto 0.03 K/uL (0.00-0.30); Basophils Percent Auto 0.5 % (0.0-3.0); Eosinophils Absolute Auto 0.11 K/uL (0.00-0.50); Eosinophils Percent Auto 1.8 % (0.0-7.0); Hematocrit 45.6 % (33.0-51.0); Immature Granulocytes Abs Auto 0.01 K/uL (0.00-0.30); Immature Granulocytes Pct Auto 0.2 %; Lymphocytes Absolute Auto 1.29 K/uL (0.90-2.90); Lymphocytes Percent Auto 21.3 % (20-44); Mean Corpuscular HGB Conc 33 gm/dL (32-36); Mean Corpuscular Hemoglobin 31 pg (26-34); Mean Corpuscular Volume 95 fL (80-100); Monocytes Percent Auto 7.8 % (0.0-11.0); Neutrophils Absolute Auto 4.15 K/uL (1.7-7.0); Neutrophils Percent Auto 68.4 % (42.0-72.0); Platelet Count* 228 K/uL (140-440); RDW Coefficient of Variation % 13.4 % (11.5-15.5); Red Blood Count 4.78 m/uL (4.00-5.20); White Blood Count* 6.06 K/uL (4.50-11.00)
[2024-02-26 09:23] LABS: Appearance Urine Clear (Clear); Bilirubin Urine Negative (Negative); Blood Urine Trace-intact (Negative); Color Urine Light yellow (Yellow); Glucose Urine Negative (Negative); Ketones Urine Negative (Negative); Leukocyte Esterase Urine Negative (Negative); Nitrite Urine Negative (Negative); Protein Urine Negative (Negative); Urobilinogen Urine 0.2 (0.2-1.0); pH Urine 7.5 (5.0-8.5)
[2024-02-26 09:32] VITALS: BP 158/79; PULSE 71; RESP 18; O2SAT 97
[2024-02-26 09:33] LABS: Fecal Occult Blood* Positive (Negative)
[2024-02-26 09:34] LABS: Albumin* 4.6 g/dL (3.3-5.0); Chloride* 105 mmol/L (96-114); Sodium* 139 mmol/L (135-149)
[2024-02-26 09:35] LABS: Potassium* 3.6 mmol/L (3.6-5.1)
--- NOTE | 2024-02-26 09:36 | CRLHL7_ITS ---
For Patients: As a result of the Century Cures Act, medical imaging exams and procedure reports are released immediately into your electronic medical record. You may view this report before your referring provider. If you have questions, please contact your health care provider. INDICATION: GI BLEED, DIFFUSE ABDOMEN PAIN. TECHNIQUE: CT abdomen and pelvis acquired without and with 100 cc Isovue 370 IV contrast. COMPARISON: None. FINDINGS: There is wall thickening and stratified mural enhancement of the proximal-mid descending colon. No active contrast extravasation. No bowel obstruction. Arterially enhancing capsular nodular focus along the anteroinferior aspect of hepatic segment 5 measures approximately 6 millimeters (/96). The liver is otherwise normal in size, shape and attenuation. Unremarkable gallbladder. No biliary dilatation. The spleen, adrenal glands and pancreas are within normal limits. The kidneys are unremarkable. Pelvic organs are unremarkable. No lymphadenopathy evident. No free air or significant free fluid. 3 millimeter subpleural nodule in the left lower lobe (5/13). Postsurgical changes of L3-4 PLIF. IMPRESSION: 1. Colitis of the proximal-mid descending colon, likely infectious or inflammatory in etiology. No active contrast extravasation. 2. 3 millimeter pulmonary nodule in the left lower lobe. No routine follow-up is indicated in low risk individuals. In high-risk individuals, consider an optional CT chest in 12 months. 3. 6 millimeter enhancing capsular nodule along hepatic segment 5. No routine follow-up is recommended in low risk individuals given that this measures less than 1 centimeter. In high-risk individuals, a liver protocol MRI is recommended in 3-6 months. Please note that all CT scans at this facility use dose modulation, iterative reconstruction, and/or weight-based dosing when appropriate to reduce radiation dose to as low as reasonably achievable. Dictated by Oliver Matthew MD @ 02/26/2024 10:48:17 AM (Electronically Signed)
[2024-02-26 09:37] LABS: Alkaline Phosphatase* 81 U/L (40-150); Anion Gap 7 mEq/L (7-15); Aspartate Amino Transferase* 31 U/L (12-35); Bilirubin Total* 0.7 mg/dL (0.1-1.5); Blood Urea Nitrogen* 10 mg/dL (7-30); Carbon Dioxide* 27 mmol/L (20-32); Creatinine* 0.7 mg/dL (0.5-1.5); Estimated Glomerular Filt Rate 93 ml/min; Total Protein* 7.2 g/dL (6.0-8.3)
[2024-02-26 09:38] LABS: Alanine Aminotransferase* 22 U/L (4-35); Calcium* 9.7 mg/dL (8.4-10.6); Glucose* 102 mg/dL (60-115); Lipase* 45 U/L (23-300); Magnesium* 2.3 mg/dL (1.5-2.6)
[2024-02-26 09:39] LABS: Slide Review Reflex No
[2024-02-26 09:43] LABS: RBC Urine 0-2 (0-2); Squamous Epithelial Cell Urine Few (None-Few); WBC Urine 0-2 (0-5)
[2024-02-26 10:00] LABS: PCR FLU A Negative PCR FLU A (Negative); PCR FLU B Negative PCR FLU B (Negative); PCR RSV Negative PCR RSV (Negative); SARS PCR* Negative SARS-CoV-2 (Negative)
[2024-02-26 10:32] VITALS: BP 142/83; PULSE 72; RESP 14; O2SAT 97
[2024-02-26 10:38] LABS: Creatinine, Point-of-Care* 0.9 mg/dl (0.6-1.3)
[2024-02-26 11:01] VITALS: BP 150/89; PULSE 72; RESP 14; O2SAT 99
[2024-02-26 11:30] VITALS: BP 158/81; PULSE 73; RESP 14; TEMP 36.4
== END 2024-02-26 11:30 | disposition home or self-care (01) ==
PROVIDERS: Emergency Provider Student in an Organized Health Care Education/Training Program; PCP Family Medicine
DX: K52.9 Noninfective gastroenteritis and colitis, unspecified (principal)
CPT/HCPCS: 36415; 74174; 80053; 81001; 82270; 82565; 83690; 83735; 84484; 85025; 87631; 93005; 96361; 96374; 99283; 99284; 99285; A9270; J2405; J7120; Q9967

== ENCOUNTER 2024-03-23 12:20 | Emergency (ER) | payer MEDICARE, BC, SELFPAY ==
[2024-03-23 12:23] VITALS: BP 149/85; PULSE 95; RESP 18; TEMP 36.6; O2SAT 99; BMI 24.7
--- NOTE | 2024-03-23 12:54 | ED_ITS ---
HPI - General Adult General Time Seen by Provider: 12:54 Date Seen: 03/23/24 Chief complaint: Nausea/Vomiting Stated complaint: Reaction to medication--nausea, lightheaded Time Seen by Provider: 03/23/24 12:52 Source: patient, RN notes reviewed and old records reviewed Mode of arrival: ambulatory Limitations: no limitations History of Present Illness HPI narrative: This 69-year-old female is coming in with abdominal pain, episode a nausea vomiting after taking a dose of Augmentin. She was in our ER on February 25, had a CT for diarrhea and was diagnosed with colitis. She was placed on Cipro but did not complete that. She reportedly was having side effects from the Cipro and read the handout, became concerned and stopped this. She did just follow clinically, tried a bland diet. She noted every time she ate she would get the epigastric pain, sometimes she would have stools after eating sometimes not. She is still having multiple stools a day but are more formed now. No fevers chills. She did send a note in to her primary care provider Dr. Bingham that she was still having symptoms, the opted to trial course of Augmentin. She had significant reaction with these GI symptoms after taking Augmentin. She has not been reimaged in the interim. She was under the impression that she had diverticulitis, had a colonoscopy October of 2023, does not remember being told she had diverticular disease. I reviewed with her that her CT in fact showed colitis, we discussed the difference between these 2 conditions. She had no travel prior to the onset of these symptoms. As far as abdominal surgery, she is only had an appendectomy. Related Data Home Medications ?Medication ?Instructions ?Recorded ?Confirmed zinc 1 tab PO DAILY 07/25/22 02/26/24 cholecalciferol (vitamin D3) 50 50 mcg PO QDAY 09/06/22 02/26/24 mcg (2,000 unit) capsule (Vitamin D3) hydrochlorothiazide 25 mg tablet 12.5 mg PO DAILY 09/06/22 02/26/24 magnesium 250 mg tablet 250 mg PO QDAY 09/06/22 02/26/24 Previous Rx's ?Medication ?Instructions ?Recorded ciprofloxacin HCl 500 mg tablet 500 mg PO BID #10 tabs 02/26/24 (Cipro) ondansetron 4 mg disintegrating 4 mg PO Q6H #20 tabs 02/26/24 tablet Allergies Allergy/AdvReac Type Severity Reaction Status Date / Time Sulfa (Sulfonamide Allergy Mild rash Verified 03/23/24 14:00 Antibiotics) nitrofurantoin Allergy Rash Verified 03/23/24 14:00 [From Macrobid] prednisone Allergy throat and Verified 03/23/24 14:00 chest tightness Review of Systems Status of ROS: Reports: 6 or more systems reviewed and unremarkable except as noted in History and below [facility] Medical History Fibromyalgia ?M79.7 - Fibromyalgia (ICD-10) Symptoms of urinary tract infection ?R39.9 - Unspecified symptoms and signs involving the genitourinary system (ICD-10) Sjogren's syndrome ?M35.00 - Sjogren syndrome, unspecified (ICD-10) Right inguinal pain ?R10.31 - Right lower quadrant pain (ICD-10) Osteopenia ?M85.80 - Other specified disorders of bone density and structure, unspecified site (ICD-10) Osteoarthritis ?M19.90 - Unspecified osteoarthritis, unspecified site (ICD-10) Normal colonoscopy (2012) Irritable bowel syndrome ?K58.9 - Irritable bowel syndrome without diarrhea (ICD-10) Benign paroxysmal positional vertigo ?H81.10 - Benign paroxysmal vertigo, unspecified ear (ICD-10) Fibromyalgia ?M79.7 - Fibromyalgia (ICD-10) Degenerative lumbar spinal stenosis (~2017) ?M48.061 - Spinal stenosis, lumbar region without neurogenic claudication (ICD-10) Surgical History History of arthroscopy of right shoulder (11/09/22) ?Z98.890 - Other specified postprocedural states (ICD-10) History of excision of mass (2012) ?Z98.890 - Other specified postprocedural states (ICD-10) History of spinal surgery (~2019) ?Z98.890 - Other specified postprocedural states (ICD-10) Lipoma of back (07/19/12) ?D17.1 - Benign lipomatous neoplasm of skin and subcutaneous tissue of trunk (ICD-10) History of hemorrhoidectomy (~1988) ?Z98.890 - Other specified postprocedural states (ICD-10) 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) ?Z96.652 - Presence of left artificial knee joint (ICD-10) History of appendectomy (1982) ?Z90.49 - Acquired absence of other specified parts of digestive tract (ICD- 10) Social History Smoking Status: Former smoker What tobacco products do you use: cigarettes Smoking quit date/years: >15 years ago Do you use any of these nicotine containing products: None Second hand tobacco smoke exposure: No How often do you have a drink containing alcohol: 4 or more times a week How many standard drinks containing alcohol do you have on a typical day: 1 or 2 How often do you have six or more drinks on one occasion: Never AUDIT-C Alcohol total score: 4 Non-prescribed substance use: denies use Caffeine: Yes Exam Const: Vital Signs, click to edit/add: Vital Signs - 24 hr 03/23/24 12:23 Temperature 97.9 F Pulse Rate [Right Pulse Oximeter] 95 Respiratory Rate 18 Blood Pressure [Ri ght Upper Arm] 149/85 H Pulse Oximetry 99 Oxygen Delivery Me thod Room Air Pascual is a 69-year-old female that is alert, interactive, no apparent stress. Pupils equal round reactive to light, sclerae clear, extraocular muscles intact. Symmetrical facial function. Neck is supple, lungs clear, good air entry, no wheezing or crackles. CV regular rate and rhythm, no murmur, normal S1-S2, no S3-S4. Abdomen is soft, nondistended, bowel sounds are present. She has definite epigastric pain with some guarding, no rebound. I do not feel any underlying masses or organomegaly. Documenting provider has reviewed patient's vital signs: yes Course Course ED Course: Reviewed with patient that I do think we should repeat CT imaging in full complement of labs. I will treat her current symptoms with a L of IV fluids, 4 mg IV Zofran and 15 mg IV Toradol. She certainly could have ongoing colitis, complications of colitis. Interestingly though she is getting epigastric pain after eating, gallbladder disease it does come into the back of my mind. We will get to these labs and CT imaging to help us in finding her diagnosis. Reevaluation(s) Time of Reevaluation #1: 15:27 Reevaluation #1: Reviewed normal CT findings with patient. She still has some very minimal epigastric pain. Reviewed CT is normal, labs are normal, no elevated lipase, liver functions all normal. Reviewed with her in lieu of her symptoms, I would recommend that she have an EGD. She needs H pylori testing with this. She does state her primary told her to fruit or nut picker some Pepcid AC or omeprazole. She did fruit or nut picker the omeprazole but did not try it. We discussed that I think would be a good idea for her to take this daily until she had EGD done. She wonders if t hey do the EGD if they can stretch her throat too. She does tell me that she gets food stuck all the time and no she has a narrow throat. Reviewed with her that she needed to make sure the new this ahead of time when going into the EGD, her primary should know when she orders this. Vital Signs Vital signs: Initial Vital Signs Temperature 97.9 F 03/23/24 12:23 Temperature Source Temporal Artery Scan 03/23/24 12:23 Pulse Rate 95 03/23/24 12:23 Respiratory Rate 18 03/23/24 12:23 Blood Pressure 149/85 H 03/23/24 12:23 Blood Pressure Mean 106 H 03/23/24 12:23 Blood Pressure Position Sitting 03/23/24 12:23 Pulse Oximetry 99 03/23/24 12:23 Oxygen Delivery Method Room Air 03/23/24 12:23 Vital Signs Temperature 97.9 F 03/23/24 12:23 Pulse Rate 95 03/23/24 12:23 Respiratory Rate 18 03/23/24 12:23 Blood Pressure 149/85 H 03/23/24 12:23 Pulse Oximetry 99 03/23/24 12:23 Oxygen Delivery Method Room Air 03/23/24 12:23 Temperature 97.9 F 03/23/24 12:23 Pulse Rate 95 03/23/24 12:23 Respiratory Rate 18 03/23/24 12:23 Blood Pressure 149/85 H 03/23/24 12:23 Pulse Oximetry 99 03/23/24 12:23 Oxygen Delivery Method Room Air 03/23/24 12:23 Medications Administered Medications: Discontinued Medications Generic Name Dose Route Start Last Admin Trade Name Freq PRN Reason Stop Dose Admin Sodium Chloride 1,000 mls @ 500 mls/hr 03/23/24 13:18 03/23/24 13:39 0.9 % Sodium Chloride 1000 Ml IV 03/23/24 15:17 500 mls/hr .Q2H ZACHARY Administration Ketorolac Tromethamine 15 mg 03/23/24 13:16 03/23/24 13:38 Ketorolac 15 Mg/Ml Inj IVP 03/23/24 13:17 15 mg ONCE ONE Administration Ondansetron HCl 4 mg 03/23/24 13:16 03/23/24 13:38 Ondansetron 2 Mg/Ml Inj IVP 03/23/24 13:17 4 mg ONCE ONE Administration Medical Decision Making Lab Data Lab results reviewed: Yes I reviewed the patient's lab results Labs: Lab Results 03/23/24 Range/Units 13:44 WBC 12.71 H (4.50-11.00) K/uL RBC 4.97 (4.00-5.20) m/uL Hgb 15.3 (12.0-16.0) gm/dL Hct 47.5 (33.0-51.0) % MCV 96 (80-100) fL MCH 31 (26-34) pg MCHC 32 (32-36) gm/dL RDW Coeff of Ramon 13.4 (11.5-15.5) % Plt Count 235 (140-440) K/uL Neut % (Auto) 83.1 H (42.0-72.0) % Lymph % (Auto) 8.3 L (20-44) % [place] % (Auto) 7.1 (0.0-11.0) % Eos % (Auto) 1.1 (0.0-7.0) % Baso % (Auto) 0.1 (0.0-3.0) % Neut # (Auto) 10.60 H (1.7-7.0) K/uL Lymph # (Auto) 1.10 (0.90-2.90) K/uL [place] # (Auto) 0.90 (0.00-0.90) K/UL Eos # (Auto) 0.10 (0.00-0.50) K/uL Baso # (Auto) 0.00 (0.00-0.30) K/uL Abs Immat Gran (auto) 0.00 (0.00-0.30) K/uL Imm/Tot Granulo (auto) 0.3 % Sodium 138 (135-149) mmol/L Potassium 3.4 L (3.6-5.1) mmol/L Chloride 101 (96-114) mmol/L Carbon Dioxide 27 (20-32) mmol/L Anion Gap 10 (7-15) mEq/L BUN 15 (7-30) mg/dL Creatinine 0.8 (0.5-1.5) mg/dL Estimated Creat Clear 40.81 Estimated GFR 79 ml/min Glucose 107 (60-115) mg/dL Lactate 1.5 (0.5-1.9) mmol/L Calcium 9.8 (8.4-10.6) mg/dL Total Bilirubin 0.7 (0.1-1.5) mg/dL AST 32 (12-35) U/L ALT 17 (4-35) U/L Alkaline Phosphatase 87 (40-150) U/L C-Reactive Protein < 0.5 L (0.5-1.0) mg/dL Total Protein 7.5 (6.0-8.3) g/dL Albumin 4.8 (3.3-5.0) g/dL Lipase 42 (23-300) U/L Imaging Data CT scan - abdomen: Attestation: I have reviewed the pertinent imaging results. Radiologist's impression: Patient: PASCUAL FLORES Facility:?[facility] Patient ID:?[id number] Site Patient ID:?[id number]. Site :?[id number] Study:?CT-Abdomen/Pelvis 66CC ISOVUE 370-03/23/2024 2:01:33 PM Ordering Physician:?Mily Craft Final Report: INDICATION: Abdominal pain with nausea and vomiting. TECHNIQUE: CT abdomen and pelvis acquired with 66 cc Isovue 370 IV contrast. COMPARISON: February 26, 2024. FINDINGS: Lower chest: Unremarkable. Liver: Unremarkable. Normal in size and attenuation. No suspicious masses. Gallbladder and bile ducts: Unremarkable. No stones or inflammation. No biliary dilatation. Pancreas: Unremarkable. No mass or inflammation. Spleen: Unremarkable. Normal in size. No masses. Adrenal glands: Unremarkable. No nodules. Kidneys: Unremarkable. No suspicious masses, stones, or hydronephrosis. GI tract: Unremarkable. Normal in caliber. No sign of mass or inflammation. Normal appendix. Vasculature: Abdominal aorta is normal in caliber. Mesenteric arteries are patent. Lymph nodes: No lymphadenopathy. Peritoneum/Abdominal Wall: Unremarkable. No sign of mass or infiltration. No free air or significant free fluid. Pelvis: Unremarkable. Bones: Unremarkable for age. IMPRESSION: No acute or significant abnormality. GI tract is unremarkable. No sign of recurrent colitis and no bowel obstruction. Please note that all CT scans at this facility use dose modulation, iterative reconstruction, and/or weight-based dosing when appropriate to reduce radiation dose to as low as reasonably achievable. Dictated by Sherif Pereira MD @ 03/23/2024 2:57:44 PM (Electronic Signature) Discharge Plan Discharge Clinical Impression: Abdominal pain, epigastric Patient Disposition: Home, Self-Care Condition: Stable Instructions: Epigastric Pain (ED) Additional Instructions: Stop Augmentin, there is no indication to take Augmentin at this time. You do need to follow-up with your primary care provider, recommend EGD and H pylori testing to be done. Do recommend that you start the omeprazole and take daily in the meantime. If you develop worsening of your abdominal pain, have further nausea or vomiting, have fever with these symptoms, do recommend re-evaluation. Your CT was not showing any evidence acute abnormality in the abdomen and pelvis, labs were reassuring such as normal lipase, normal liver function tests. Activity Level: Activity as Tolerated Prescriptions: No Action cholecalciferol (vitamin D3) [Vitamin D3] 50 mcg (2,000 unit) capsule 50 mcg PO QDAY magnesium 250 mg tablet 250 mg PO QDAY hydrochlorothiazide 25 mg tablet 12.5 mg PO DAILY zinc 1 tab PO DAILY ondansetron 4 mg tablet,disintegrating 4 mg PO Q6H Qty: 20 0RF ciprofloxacin HCl [Cipro] 500 mg tablet 500 mg PO BID Qty: 10 0RF Follow Up/Referrals: Thais Bingham MD [Primary Care Provider] - Stand Alone Forms: [employer] Info Instructions
--- NOTE | 2024-03-23 13:17 | CRLHL7_ITS ---
For Patients: As a result of the Century Cures Act, medical imaging exams and procedure reports are released immediately into your electronic medical record. You may view this report before your referring provider. If you have questions, please contact your health care provider. INDICATION: Abdominal pain with nausea and vomiting. TECHNIQUE: CT abdomen and pelvis acquired with 66 cc Isovue 370 IV contrast. COMPARISON: February 26, 2024. FINDINGS: Lower chest: Unremarkable. Liver: Unremarkable. Normal in size and attenuation. No suspicious masses. Gallbladder and bile ducts: Unremarkable. No stones or inflammation. No biliary dilatation. Pancreas: Unremarkable. No mass or inflammation. Spleen: Unremarkable. Normal in size. No masses. Adrenal glands: Unremarkable. No nodules. Kidneys: Unremarkable. No suspicious masses, stones, or hydronephrosis. GI tract: Unremarkable. Normal in caliber. No sign of mass or inflammation. Normal appendix. Vasculature: Abdominal aorta is normal in caliber. Mesenteric arteries are patent. Lymph nodes: No lymphadenopathy. Peritoneum/Abdominal Wall: Unremarkable. No sign of mass or infiltration. No free air or significant free fluid. Pelvis: Unremarkable. Bones: Unremarkable for age. IMPRESSION: No acute or significant abnormality. GI tract is unremarkable. No sign of recurrent colitis and no bowel obstruction. Please note that all CT scans at this facility use dose modulation, iterative reconstruction, and/or weight-based dosing when appropriate to reduce radiation dose to as low as reasonably achievable. Dictated by Sherif Pereira MD @ 03/23/2024 2:57:44 PM (Electronically Signed)
--- OUTSIDE RECORDS SUMMARY | 2024-03-23 13:29 | XMS_ITS | Clinical Summary ---
Author Organization [employer] [facility] Address [place], [place] [address] Care Team Providers Care Gasket Maker Name Role Phone Thais Bingham MD Primary Care Provide r Soco Banuelos MD Unavailable [phone] Allergies Active Allergy Reactions Criticality Noted Date [...] by mouth once daily. 0 07/29/2022 Active medication order composer Take 250 mg by mouth once daily. Magnesium 07/27/2023 Active hydroCHLOROthiazid e (HCTZ) 25 mg tabletIndications: HTN (hypertension) Take 0.5 Tablets (12.5 mg) by mouth once daily. 45 Tablet 3 07/27/2023 Active amoxicillin (AMOXIL) 250 mg capsuleIndications :Recurrent UTI Take 1 orally after intercourse 30 Capsule 2 07/27/2023 Active ALPRAZolam (XANAX) 0.25 mg tabletIndications: Fear of flying Take 1 Tablet (0.25 mg) by mouth every 6 hours if needed for Anxiety (fear of flying). 10 Tablet 12/22/2023 Active medication order composerIndication s:Arthralgia, unspecified joint Take 1,000 mg by mouth once daily. 03/05/2024 Active amoxicillin-clavul anate (Augmentin) 875-125 mg tabletIndications: Acute colitis Take 1 tablet three times daily with meals for 7 days 21 Tablet 03/22/2024 Active polyethylene glycol-electrolyte (GOLYTELY) 236-22.74-6.74 -5.86 gram suspensionIndicati ons:Encounter for screening colonoscopy Drink 2 liters the day before colonoscopy and drink 2 liters 6 hours before colonoscopy appointment 4000 mL 09/04/2023 Discontinue d(*Patient states no longer taking) Active Problems Problem Noted Date Diagnosed Date Age-related osteoporosis wit hout current pathological fracture 04/26/2018 Hyperlipidemia 02/04/2016 Routine adult health maintenance 06/19/2013 Overview (06/19/2013): Colonoscopy 06/2013 normal repeat in 10 years HTN (hypertension) 06/07/2011 Fibromyalgia 10/27/2009 Osteoarthritis of knee 10/27/2009 Spondylolisthesis of lumbar region Resolved Problems Problem Noted Date Diagnosed Date Resolved Date Lipidemia 06/07/2011 02/04/2016 Mixed hyperlipidemia 04/01/2008 011 Encounters Date Type Department Care Team Description 03/23/2024 Nurse Triage [facility] [address] [place] [address] Thais Bingham MD Vomiting 03/05/2024 11:20 AM CDT Office Visit [facility] [address] [place] [address] Thais Bingham MD ER Follow up (02/26/24. Abdominal pain with rectal bleeding. Determined to be Colitis./ Concerns today are the nodules seen at the ER on the CT scan) 03/05/2024 Travel 02/26/2024 Orders Only [facility] Scanner 1 scan: (1-Ord) [facility], ANGIO ABD PEL GI BLEED, 02/26/2024 from Last 3 Months Immunizations Name Administration Dates Next Due COVID-19 vaccine ([employer] 30mcg/0.3mL) CARYN Al 09/24/2020,09/03/2020 Influenza, Inactivated IIV3 [...] of Communication with Friends and Fami ly 0 03/05/2024 Financial Resource Strain Answer Date R ecorded Difficulty of Paying Living Expenses 3 03/05/2024 Difficulty of Paying Living Expenses Not on file 03/05/2024 Food Insecurity Answer Date Recorded Worried About Running Out of Food in the Last Ye ar 1 03/05/2024 Transportation Needs Answer Date Record ed Lack of Transportation (Medical) 1 03/05/2024 Housing Stability Answer Date Recorded Unable to Pay for Housing in the Last Year 1 03/05/2024 Sex and Gender Information Value Date Recorded Sex Assigned at Not on file Gender Identity Not on file Sexual Orientation Not on file Obstetrics History Last Filed Vital Signs Vital Sign Reading Time Taken Comments Blood Pressure 150/86 03/05/2024 11:54 AM CDT Pulse 73 03/05/2024 11:54 AM CDT Temperature 36.4 ??C (97.6 ??F) 10/19/2023 8:30 AM CD T Respiratory Rate 14 10/26/2023 8:50 AM CDT Oxygen Saturation 98% 03/05/2024 11:52 AM CDT Inhaled Oxygen Concentration - - Weight 61.7 kg (136 lb) 03/05/2024 11:52 AM CDT Height 156.2 cm (5' 1.5) 07/27/2023 10:52 AM CS T Body Mass Index 25.28 07/27/2023 10:52 AM FORCER MAKER Plan of Treatment Upcoming Encounters Date Type Department Care Team (Late st Contact Info) Description 04/09/2024 2:40 PM CDT Office Visit [facility] [address] [place] [address] Thais Bingham MD [address] [place] [address] Health Maintenance Due Date Last Done Comments Zoster (shingles) series for age 50+ (1 of 2) 2003 Pneumococcal series for age 65+ (1 of 1 - PCV) 2018 COVID-19 vaccine series ( season) 2024 06/17/2021, 09/24/2020, 09/03/2020 Influenza for age 65+ 03/03/2024 04/13/2020 Mammogram for age 45-75 07/25/2024 07/25/19 24, 07/20/2022, 05/26/2021, Additional history exists BMI (ht and wt on same day) for age 18+ 07/27/2024 07/27/2023, 11/03/2022, 10/22/2021, Additional history exists Depression screening for age 12+ 07/27/2024 07/27/2023, 07/27/2023, 11/03/2022, Additional history exists Medicare Wellness for age 65+ 07/27/2024, 10/22/2021, 03/21/2019 Lipids for age 45-75 07/27/2028 07/27/2023, 11/03/2022, 01/10/2022, Additional history exists Tetanus booster 10/23/2031 10/22/2021, 12/12/2010, 06/07/2011, Additional history exists Colonoscopy through age 75 10/25/203310/25, 10/26/2023, 10/26/2023, Additional history exists Hepatitis C screening for ag e 18-79 Completed 03/21/2019 Tdap Completed 10/22/2021, 06/07/2011 DEXA/DXA scan for age 65+ Completed 2023, 04/10/2018, 03/21/2013, Additional history exists Goals Goal Patient Goal Type Associated Problems Recent Progress Patient-Stated? Author BLOOD PRESSURE - Maintains BP less than 140/90 Blood Pressure No Alice Garcia LPN Medical Devices Implanted Type Area Guide Changer Device Identifier Shelf Expiration Date Model / Serial / Lot Bone 1-4mm 30cc Medtronic Chips Canclls Freeze Dried - [id number] Implanted:Qty : 1 on 05/12/2020 by Leandro Renee MD at [facility] Right: Lumbar Vertebrae Medtronic Spine/Ortho 11/05/2024 [id number] / / [id number] Bone Matrix 10cc Progenix Plusputty Dbm - [id number] Implanted:Qty : 1 on 05/12/2020 by Leandro Renee MD at [facility] Right: Lumbar Vertebrae Medtronic Spine/Ortho 12/25/2021 [id number] / / [id number] Bone Matrix Sm Infuse Bmp - [id number] Implanted:Qty : 1 on 05/12/2020 by Leandro Renee MD at [facility] Right: Lumbar Vertebrae Medtronic Spine/Ortho 04/01/2022 [id number]# / / [id number] Elite Spacer - [id number] Implanted:Qty : 1 on 05/12/2020 by Leandro Renee MD at [facility] Right: Lumbar Vertebrae [employer] 12/31/2024 [id number] / / [id number] Screw Lmbr Mantis Redux - [id number] Implanted:Qty : 4 on 05/12/2020 by Leandro Renee MD at [facility] Right: Lumbar Vertebrae Al Spine [id number] / / Screw Lmbr 7.5x50mm Es2 Va Mis - [id number] Implanted:Qty : 4 on 05/12/2020 by Leandro Renee MD at [facility] Right: Lumbar Vertebrae Al Spine [id number] / / Price Lmbr 40mmx5.5 Es2 Cvd - [id number] Implanted:Qty : 1 on 05/12/2020 by Leandro Renee MD at [facility] Right: Lumbar Vertebrae Point [employer] Spine [id number]# / / Price Lmbr 45mmx5.5 Es2 Cvd - [id number] Implanted:Qty : 1 on 05/12/2020 by Leandro Renee MD at [facility] Right: Lumbar Vertebrae Point [employer] Spine [id number]# / / Procedures Procedure Name Priority Date/Time Associated Diagnosis Comments SCAN-CT INTERPRETATION 12:00 AM CDT COLONOSCOPY SCREENING Routine 10/26/2023 7:28 AM CDT Screening for colon cancer XR DXA BONE DENSITY 2 SITES AXIAL Routine 07/27/2023 1:39 PM FORCER MAKER Osteoporosis, unspecified osteoporosis type, unspecified pathological fracture presence LIPID PANEL W REFLEX MEASURED LDL Routine 07/27/2023 12:04 PM FORCER MAKER Lipid screening SCAN-MAMMOGRAPHY REPORT 07/25/2023 12:00 AM FORCER MAKER ANTI HCV Routine 03/21/2019 9:11 AM CDT Encounter for hepatitis C screening test for low risk patient from Last 3 Months or Most Recently Relevant to Health Maintenance Results * SCAN-CT INTERPRETATION (02/26/2024 12:00 AM CDT) Anatomical Region Laterality Modality Other Scanner OTHER * COLONOSCOPY (10/26/2023 7:57 AM CDT) 10/26/2023 [...] an adequate candidate for conscious sedation. The [id number] was passed through the anus and advanced [...] 7:57 AM Procedure Code(s): --- Professional --- 00801, Colonoscopy, flexible; diagnostic, including collection of specimen(s) bybrushing or washing, when performed (separateprocedure) Diagnosis Code(s): --- Professional --- Z12.11, Encounter for screening formalignant neoplasm of colon K57.30, Diverticulosis of large intestine without perforation or abscess withoutbleeding CPT copyright 2022 [employer]. All rights reserved. The codes documented in this report are preliminary and upon crane hooker reviewmay be revised to meet current compliance requirements. Scope In: 8:14:15 AM Scope Withdrawal Time 0 hours 7 minutes 27 seconds Scope Out: 8:32:15 AM Zeferino Peterson MD PROCEDURE ORD * (ABNORMAL) XR DXA BONE DENSITY 2 SITES AXIAL (07/27/2023 1:39 PM FORCER MAKER) Anatomical Region Laterality Modality Spine, HIPS, HIPL, HIPR Other Impressions 08/01/2023 2:36 PM FORCER MAKER Osteopenia. RECOMMENDATIONS: The National Osteoporosis Foundation recommends [...] recommended in 3-5 years. Candi Driver PA-C [facility] 08/01/2023 Narrative 08/01/2023 2:36 PM FORCER MAKER For Patients: Results are automatically released to your [employer] account once available, in compliance with federal regulations. This means that you may see your results before your provider has had a chance to review them. Please allow 2-3 business days for your provider to comment on the results. XR DXA Bone Mineral Density (BMD) EXAM LOCATION: [facility] [address] [facility] [address] PATIENT NAME: Petra Loja DATE OF : [...] two scanners are made by the same home hospice rn. PROCEDURE: Dual-energy x-ray absorptiometry performed with routine [...] W REFLEX MEASURED LDL (07/27/2023 12:04 PM FORCER MAKER) [facility] CHOLESTEROL,TOTAL 292(H) 100 - 199 mg/dL 07/27/2023 10:25 PM FORCER MAKER [facility] Comment: Cholesterol, Total Reference Ranges Desirable <200 mg/dL Borderline 200-239 mg/dL High >=240 mg/dL TRIGLYCERIDES 107 <150 mg/dL 07/27/2023 10:25 PM FORCER MAKER [facility] HDL CHOLESTEROL 71 >40 mg/dL 10:25 PM FORCER MAKER [facility] NON-HDL CHOLESTEROL 221(H) <145 mg/dl 07/27/2023 10:25 PM FORCER MAKER [facility] CHOL/HDL RATIO 4.11 <4.50 07/27/2023 10:25 PM FORCER MAKER [facility] LDL CHOLESTEROL 200(H) <=130 mg/dL 07/27/2023 10:25 PM FORCER MAKER [facility] VLDL CHOLESTEROL 21 <=30 mg/dL 07/27/2023 10:25 PM FORCER MAKER [facility] PROVIDER ORDERED STATUS RANDOM 07/27/2023 10:25 PM FORCER MAKER [facility] Blood BLOOD SPECIMEN / Unknown Venipuncture / Unknown 07/27/2023 12:04 PM FORCER MAKER 07/27/2023 12:06 PM FORCER MAKER Thais Bingham MD CHEMISTRY [facility] [address] [place] [address], * SCAN-MAMMOGRAPHY REPORT (07/25/2023 12:00 AM FORCER MAKER) Anatomical Region Laterality Modality Other Scanner OTHER * ANTI HCV (03/21/2019 9:11 AM CDT) HEPATITIS C ANTIBODY Non-React ricky Non-React ricky 03/21/2019 2:05 PM CDT [facility] Comment:Antibodies to HCV no t detected; does not exclude the possibility of exposure to HCV. Blood BLOOD SPECIMEN / Unknown Venipuncture / Unknown 03/21/2019 9:11 AM CDT 03/21/2019 9:12 AM CDT Thais Bingham MD SEND OUTS [facility] [address] [place] [address], from Last 3 Months or Most Recently Relevant to Health Maintenance Advance Directives Documents on File Type Date Recorded Patient Sieve Repairer Expl anation Healthcare Directive 05/12/2020 10:22 AM Healthcare Directive 01/26/2016 8:42 AM [facility], 01/11/2016 * Full Code (Latest Code Status on File) Date Activated Date Inactivated Comments 05/12/2020 2:46 PM 05/14/2020 5:39 PM Question Answer Comments Code Status Discussion: Not Discussed * Full Code Date Activated Date Inactivated Comments 05/12/2020 10:31 AM 05/12/2020 2:46 PM Question Answer Comments Code Status Discussion: Not Discussed Care Teams Gasket Maker Relationship Specialty Start Date End Date Thais Bingham MD [address] [place] [address] PCP - General 02/07/06 Soco Banuelos MD [address] [place] [address] Rheumatology 06/09/23
--- OUTSIDE RECORDS SUMMARY | 2024-03-23 13:29 | XMS_ITS | Continuity of Care Document ---
Author Organization [facility] Address [address] [place] [address] Phone Care Team Providers Care Waste Collector Name Role Phone Ezequiel Gregory Unavailable Unavailable Allergies, Adverse Reactions, Alerts Substance Reaction Status Criticality NITROFURANTOIN MACROCRYSTALLINE Active No Information azithromycin Active No Information Sulfa (Sulfonamide Antibiotics) Active No Information Medications Medication Instructions Dosage Effective Dates (start - stop) Status Comments ZANTAC (unknown strength) Not Available - Active LOVASTATIN (unknown strength) Not Available - Active HYDROCHLOROTHIAZIDE (unknown strength) Not Available - Active Procedures Procedure Date Office/Outpatient Visit,Alvarez Ramirez 2018 Advance Directives Directive Yes / No Effective Date File Name No Information Encounters Encounter Description Practice Location Reason(s) For Visit Diagnoses Date Provider Providers Copied on Encounter [facility], [address], [place], [place], [id number], [place] tel:[phone] [facility] No Information [address]. [facility] [place], [address], [place], [place], [id number] , [place]. [phone] Office/Outpat ient Visit,[facility], [address], [place], [id number], [place] tel:[phone] [facility] [place] CervicalgiaLow back pain 9 [address]ieves. [facility] [place], [address], [place], [place], [id number] , [place]. [phone] Referring Provider: Thais Bingham , [address], [place], [address]. tel:[phone] Family History Family Member Type Diagnosis Age At Onset No Information Payers Payer name Insurance type Covered green party ID Olga cam(s) [facility] [id number] Medicare Agustin [id number] 1 Social History Type Description Quantity Date [...]
--- OUTSIDE RECORDS SUMMARY | 2024-03-23 13:29 | XMS_ITS | Data Portability ---
Author Organization [facility] [employer], [facility], [facility] Address [address] [place] [address] Care Team Providers Care Specialty Person Name Role Phone WIL OCHOA Referring Provider Assessment Encounter Date Assessment Date Assessment LastModified by Organization Details LastModified Time 09/15/2017 09/15/2017 New Patient. Not available 0 09/15/2017 21:59:12 Plan of Treatment Reminders Order Date Submit Date Provider Last Modified By Organization Details Last Modified Time Details Appointments None recorded. Lab urinalysis , dipstick 2017 018 [email or web address] In-Office Order, Internal Use Only DO Not Attach Compendium DO Not Attach Compendium, Do Not Delete/merge, [id number] 8 14:24:37 culture, urine 2017 018 [facility], [address] [place], [place] [address]y [address] [place], [address], 8 00:27:46 Referral None recorded. Procedures None recorded. Surgeries None recorded. Imaging None recorded. Medication Orders ciprofloxa tatyana 500 mg tablet 2017 018 [facility] [employer] [facility] [employer] [facility]12394, [address], [place], [id number], 8 10:13:28 Patient TargetsNo targets recorded. Patient Instructions Encounter Date Encounter Id Patient Instructions Last Modified By Organization Details Last Modified Time 09/15/2017 [id number] Patient understands instructions and will seek medical attention if symptoms worsen as directed. Not available 09/15/2017 22:00:01 Reason for Referral None Reported. Results Created Date Observation Date Name Description Value Unit Range Abnormal Flag Note LastModifiedBy Organization Detail LastModifiedTime 09/16/19 18 09/16/2017 cultu re, urine culture, urine, routine SEE NOTE CULTU RE, URINE , ROUTI NE MICRO NUMBE R: [id number] TEST STATU S: FINAL SPECI MEN SOURC E: URINE SPECI MEN QUALI TY: ADEQU ATE RESUL T: No Growt h Not Available [facility] [address], [place], [address], 09/17/2017 00:27:46 09/16/19 18 09/15/2017 urina lysis , dipst ick leukocytes small negati ve Not Available In-Office Order Internal Use Only DO Not Attach Compendium DO Not Attach Compendium, Do Not Delete/merge, [id number] 09/15/2017 09:30:55 09/16/19 18 09/15/2017 urina lysis , dipst ick nitrite pos negati ve Not Available In-Office Order Internal Use Only DO Not Attach Compendium DO Not Attach Compendium, Do Not Delete/merge, [id number] 09/15/2017 09:30:55 09/16/19 18 09/15/2017 urina lysis , dipst ick urobilinogen 0.2 0.2 Not Available In-Of fice Order Internal Use Only DO Not Attach Compendium DO Not Attach Compendium, Do Not Delete/merge, 09/15/2017 09:30:55 09/16/19 18 09/15/2017 urina lysis , dipst ick protein ng negati ve Not Available In-Office Order Internal Use Only DO Not Attach Compendium DO Not Attach Compendium, Do Not Delete/merge, 09/15/2017 09:30:55 09/16/19 18 09/15/2017 urina lysis , dipst ick pH 5.5 5.0-7. 0 Not Available In-Office Order Internal Use Only DO Not Attach Compendium DO Not Attach Compendium, Do Not Delete/merge, 09/15/2017 09:30:55 09/16/19 18 09/15/2017 urina lysis , dipst ick blood ng negati ve Not Available In-Office Order Internal Use Only DO Not Attach Compendium DO Not Attach Compendium, Do Not Delete/merge, [id number] 09/15/2017 09:30:55 09/16/19 18 09/15/2017 urina lysis , dipst ick specific gravity 1.005 1.020- 1.035 Not Available In-Office Order Internal Use Only DO Not Attach Compendium DO Not Attach Compendium, Do Not Delete/merge, [id number] 09/15/2017 09:30:55 09/16/19 18 09/15/2017 urina lysis , dipst ick ketone ng negati ve Not Available In-Office Order Internal Use Only DO Not Attach Compendium DO Not Attach Compendium, Do Not Delete/merge, [id number] 09/15/2017 09:30:55 09/16/19 18 09/15/2017 urina lysis , dipst ick bilirubin ng negati ve Not Available In-Office Order Internal Use Only DO Not Attach Compendium DO Not Attach Compendium, Do Not Delete/merge, [id number] 09/15/2017 09:30:55 09/16/19 18 09/15/2017 urina lysis , dipst ick glucose 100 negati ve Not Available In-Office Order Internal Use Only DO Not Attach Compendium DO Not Attach Compendium, Do Not Delete/merge, [id number] 09/15/2017 09:30:55 Result Notes None recorded. Problems Name Problem SNOMED Code Status Onset Date Resolution Date Notes Provider Name and Address Organization Details Recorded Time Hyperlipidemia 68954195 Active 2017 CALVIN Aguillon [address], [place], [address], [facility] [employer] [facility] [place] 8 22:00:51 Essential hypertension 40896157 Active 2017 CALVIN Aguillon [address], [place], [address], [facility], [facility] 8 22:00:58 Problem Notes None recorded. Procedures Surgical History Date Name Laterality Status Provider Name and Address Organization Details Recorded Time 01/01/200 5 Knee surgery completed Leny Emery [facility] 09/15/2017 09:33:11 Imaging Results None recorded. Procedure Notes None recorded. Medical Equipment None Reported. Allergies Allergen ID Allergen Name Allergen Category Reaction Reaction Severity Criticality Documentation Date Start Date Code Code System Note Provider Name and Address Organization Details Recorded Time 689556 Macrodant in medicatio n Not available Not available Not available 09/15/2017 98420 4 [facility] [address] 8 09:31:25 672701 Substance with sulfonami de structure and antibacte rial mechanism of action (substanc e) medicatio n Not available Not available Not available 09/15/2017 13098 8003 [facility] Luana De Jesus [facility] [address], [address] [place] [address] 8 10:11:18 Medications Name Sig Start Date [...] Address Organization Details Last Updated DateTime 8 52317.7 9 g 24.3 kg/m2 157.48 cm 99 [degF] 79 /min 16 /min 98 % 98 % 138 mm[Hg] 78 mm[Hg] Hanna Munoz [facility] 8 09:51:42 Social History Question Answer Notes LastModified by Organizat ion Details LastModified Time Tobacco Smoking Status Never Smoker Leny vasquez [facility] 09/15/2017 09:34:25 Which Illicit Or Recreational Drugs Have You Used? Declines To Answer Information not available 09/15/2017 What Is Your Occupation? Retired Information not available 09/15/2017 Alcohol Use 1-2 Per Day Information not available 09/15/2017 What Was The Date Of Your Most Recent Tobacco Screening? 09/15/2017 Information not available 01/25/2019 Sex: Unknown Functional Status Question Answer Note LastModified by Organizat ion Details LastModified Time What is your exercise level? Occasional Information not available 09/15/2017 Mental Status None recorded. Family History Relationship Description Onset Age of this Age Resolved Age Notes LastModified by Organization Details LastModified Time Unspecified Relation Heart disease [email or web address] Not available 2017 09:33:30 Unspecified Relation Hypertensive disorder [email or web address] Not available 2017 09:33:41 Unspecified Relation Hypercholest erolemia [email or web address] Not available 2017 09:33:51 Unspecified Relation Osteoporosis [email or web address] Not available 08/31 09:33:59 Medical History Condition Response Cancer (location) N [...] Crohn's Disease N HIV/AIDS N Stroke/TIA N Colon Problems N High Cholesterol Y Serious Injuries N Kidney Disease N Memory Loss/Alzheimer's N High blood pressure Y Gallbladder disease N Congestive heart failure N Falls N Hormone Replacement N Blood Thinner Treatment N Alcohol Overuse N Nervous Breakdown N Bolton's Esophagus N Anemia N Urinary Problems Y Colon Polyps N Gastritis N Hospitalizations (other than operations) N Diabetes N Back pain N Rheumatic Fever N Bleeding Disorder N Cardiac Arrhythmias /irregular heart rat e N Osteopenia/Osteoporosis Y Anxiety/Stress N Vision Problems N Asthma N Erectile / Sexual Dysfunction N Ostomies (location) N Seizures N Sleep Apnea N Jaundice N Hepatitis N Cirrhosis N GERD/Ulcer N Chicken Pox N Allergies (other than meds) N Gynecological HistoryNo gynecological history recorded. Obstetrics History GPAL:G 0 P 0 0 0 0 Past Encounters Encounter ID Performer Location Encounter Start Date Encounter Closed Date Diagnosis/Indication Diagnosis SNOMED-CT Code Diagnosis ICD10 Code [id number] Wil Ochoa DO [employer] [address] [place] [address] 09/15/2017 09:27:46 09/17/2017 23:19:16 Dysuria 91920074 R30.0 Acute urin rafia tract infection 432562571 N39.0 Health Concerns Section Related Observation LastModified by Organization Detai ls LastModified Time None Recorded Concern Status LastModified by Organization Details LastModified Time None Recorded Advance Directives Directive None Recorded Payers Encounter Date Sequence Insurance Name Policy Number Policy Martinez Covered Member ID Martinez Member ID Guarantor Name 09/15/2017 1 [employer] - [employer] - IF[employer] (PPO) Petra Loja [id number] Petra Loja Notes Date Note Type Note [...] flank pain New Patient. Wil Ochoa DO [address], [place], [address], [facility] - [facility], [facility] 09/18/2017 20:11:20 OBGyn Episode No OBEpisode recorded.
[2024-03-23] MEDS: KETOROLAC 15 MG/ML inj IVP (13:38)
[2024-03-23] MEDS: ONDANSETRON 2 MG/ML inj 4 MG IVP (13:38)
[2024-03-23] MEDS: 0.9 % SODIUM CHLORIDE 1000 ml 1,000 ML 500 ML IV (13:39)
[2024-03-23 13:50] LABS: Basophils Percent Auto 0.1 % (0.0-3.0); Eosinophils Percent Auto 1.1 % (0.0-7.0); Hematocrit 47.5 % (33.0-51.0); Hemoglobin* 15.3 gm/dL (12.0-16.0); Immature Granulocytes Pct Auto 0.3 %; Lymphocytes Percent Auto 8.3 % (20-44); Mean Corpuscular HGB Conc 32 gm/dL (32-36); Mean Corpuscular Hemoglobin 31 pg (26-34); Mean Corpuscular Volume 96 fL (80-100); Monocytes Percent Auto 7.1 % (0.0-11.0); Neutrophils Percent Auto 83.1 % (42.0-72.0); Platelet Count* 235 K/uL (140-440); RDW Coefficient of Variation % 13.4 % (11.5-15.5); Red Blood Count 4.97 m/uL (4.00-5.20); White Blood Count* 12.71 K/uL (4.50-11.00)
[2024-03-23 13:57] LABS: Lactate* 1.5 mmol/L (0.5-1.9)
[2024-03-23 14:21] LABS: Albumin* 4.8 g/dL (3.3-5.0); Chloride* 101 mmol/L (96-114); Sodium* 138 mmol/L (135-149)
[2024-03-23 14:22] LABS: Potassium* 3.4 mmol/L (3.6-5.1)
[2024-03-23 14:23] LABS: Creatinine* 0.8 mg/dL (0.5-1.5); Est. Creatinine Clearance* 40.81; Estimated Glomerular Filt Rate 79 ml/min
[2024-03-23 14:24] LABS: Alkaline Phosphatase* 87 U/L (40-150); Anion Gap 10 mEq/L (7-15); Aspartate Amino Transferase* 32 U/L (12-35); Bilirubin Total* 0.7 mg/dL (0.1-1.5); Blood Urea Nitrogen* 15 mg/dL (7-30); Carbon Dioxide* 27 mmol/L (20-32); Lipase* 42 U/L (23-300); Total Protein* 7.5 g/dL (6.0-8.3)
[2024-03-23 14:25] LABS: Alanine Aminotransferase* 17 U/L (4-35); Calcium* 9.8 mg/dL (8.4-10.6); Glucose* 107 mg/dL (60-115)
[2024-03-23 14:34] LABS: C Reactive Protein* < 0.5 mg/dL (0.5-1.0)
[2024-03-23 14:38] LABS: Slide Review Reflex No
== END 2024-03-23 15:46 | disposition home or self-care (01) ==
PROVIDERS: Emergency Provider Family Medicine; PCP Family Medicine
DX: R10.13 Epigastric pain (principal)
CPT/HCPCS: 36415; 74177; 80053; 83605; 83690; 85025; 86140; 96361; 96374; 96375; 99284; 99285; J1885; J2405; J7030; Q9967

== ENCOUNTER 2024-04-24 07:57 | Outpatient (CLI) | payer MEDICARE, BC, SELFPAY ==
--- OUTSIDE RECORDS SUMMARY | 2024-04-24 08:01 | XMS_ITS | Continuity of Care Document ---
Author Organization [facility] Address [address] [place] [address] Phone Care Team Providers Care Book Or Script Editor Name Role Phone Ezequiel Gregory Unavailable Unavailable [...] Encounter [facility], [address], [place], [place], [id number], [place] tel:[phone] [facility] No Information 9 [address] Nieves. [facility], [address], [place], [place], [address] , [place]. [phone] Office/Outpat ient Visit,[facility], [address], [place], [id number], [place] tel:[phone] [facility] [place] [place] CervicalgiaLow back pain 9 [address]. [facility], [address], [place], [place], [id number] , [place]. [phone] Referring Provider: Thais Bingham , [address], [place], [address]. tel:[phone] Family History Family Member Type Diagnosis Age At Onset No Information Payers Payer name Insurance type Covered constitution party ID Olga cam(s) [facility] [id number] Medicare Agustin [id number] 1 Social History Type Description Quantity Date [...]
--- OUTSIDE RECORDS SUMMARY | 2024-04-24 08:02 | XMS_ITS | Data Portability ---
Author Organization [facility] [employer], [facility], [facility] Address [address] [place] [address] Care Team Providers Care Oil Gauger Name Role Phone WIL OCHOA Referring Provider [phone] Assessment Encounter Date Assessment Date Assessment LastModified by Organization Details LastModified Time 09/15/2017 09/15/2017 New Patient. [email or web address] Not available 0 09/15/2017 21:59:12 Plan of Treatment Reminders Order Date Submit Date Provider Last Modified By Organization Details Last Modified Time Details Appointments None recorded. Lab urinalysis , dipstick 2017 018 [email or web address] In-Office Order, Internal Use Only DO Not Attach Compendium DO Not Attach Compendium, Do Not Delete/merge, [id number] 8 14:24:37 culture, urine 2017 018 [facility], [address] [place], [place] [address]y [address] [place], [address], 8 00:27:46 Referral None recorded. Procedures None recorded. Surgeries None recorded. Imaging None recorded. Medication Orders ciprofloxa tatyana 500 mg tablet 2017 018 [facility] [employer] #63531, [address] [place], [place], [id number], 8 10:13:28 Patient TargetsNo targets recorded. Patient Instructions Encounter Date Encounter Id Patient Instructions Last Modified By Organization Details Last Modified Time 09/15/2017 [id number] Patient understands instructions and will seek medical attention if symptoms worsen as directed. [email or web address] Not available 09/15/2017 22:00:01 Reason for Referral None Reported. Results Created Date Observation Date Name Description Value Unit Range Abnormal Flag Note LastModifiedBy Organization Detail LastModifiedTime 09/16/19 18 09/16/2017 cultu re, urine culture, urine, routine SEE NOTE CULTU RE, URINE , ROUTI NE MICRO NUMBE R: [id number] TEST STATU S: FINAL SPECI MEN SOURC E: URINE SPECI MEN QUALI TY: ADEQU ATE RESUL T: No Growt h Not Available [facility] [address], [place], [address], 09/17/2017 00:27:46 09/16/19 18 09/15/2017 urina lysis , dipst ick leukocytes small negati ve Not Available In-Office Order Internal Use Only DO Not Attach Compendium DO Not Attach Compendium, Do Not Delete/merge, [id number] 09/15/2017 09:30:55 09/16/19 18 09/15/2017 urina lysis , dipst ick nitrite pos negati ve Not Available In-Office Order Internal Use Only DO Not Attach Compendium DO Not Attach Compendium, Do Not Delete/merge, [id number] 09/15/2017 09:30:55 09/16/19 18 09/15/2017 urina lysis [...] DO Not Attach Compendium, Do Not Delete/merge, [id number] 09/15/2017 09:30:55 09/16/19 18 09/15/2017 urina lysis , dipst ick specific gravity 1.005 1.020- 1.035 Not Available In-Office Order Internal Use Only DO Not Attach Compendium DO Not Attach Compendium, Do Not Delete/merge, [id number] 09/15/2017 09:30:55 09/16/19 18 09/15/2017 urina lysis , dipst ick ketone ng negati ve Not Available In-Office Order Internal Use Only DO Not Attach Compendium DO Not Attach Compendium, Do Not Delete/merge, [id number] 09/15/2017 09:30:55 09/16/19 18 09/15/2017 urina lysis , dipst ick bilirubin ng negati ve Not Available In-Office Order Internal Use Only DO Not Attach Compendium DO Not Attach Compendium, Do Not Delete/merge, [id number] 09/15/2017 09:30:55 09/16/19 18 09/15/2017 urina lysis , dipst ick glucose 100 negati ve Not Available In-Office Order Internal Use Only DO Not Attach Compendium DO Not Attach Compendium, Do Not Delete/merge, [id number] 09/15/2017 09:30:55 Result Notes None recorded. Problems Name Problem SNOMED Code Status Onset Date Resolution Date Notes Provider Name and Address Organization Details Recorded Time Hyperlipidemia 19161509 Active 2017 CALVIN Aguillon [address], [place], [address], [facility] [employer] [facility], [place] 8 22:00:51 Essential hypertension 72947218 Active 2017 CALVIN Aguillon [address], [place], [address], [facility] Phys[facility], [facility] 8 22:00:58 Problem Notes None recorded. Procedures Surgical History Date Name Laterality Status Provider Name and Address Organization Details Recorded Time 01/01/200 5 Knee surgery completed Leny Emery [facility] 09/15/2017 09:33:11 Imaging Results None recorded. Procedure Notes None recorded. Medical Equipment None Reported. Allergies Allergen ID Allergen Name Allergen Category Reaction Reaction Severity Criticality Documentation Date Start Date Code Code System Note Provider Name and Address Organization Details Recorded Time 943911 Macrodant in medicatio n Not available Not available Not available 09/15/2017 66407 4 [facility] 8 09:31:25 920224 Substance with sulfonami de structure and antibacte rial mechanism of action (substanc e) medicatio n Not available Not available Not available 09/15/2017 44466 8003 [facility] Luana De Jesus [facility] [address], [address] [place] [address] 8 10:11:18 Medications Name Sig Start Date [...] Address Organization Details Last Updated DateTime 8 [address].7 9 g 24.3 kg/m2 157.48 cm 99 [degF] 79 /min 16 /min 98 % 98 % 138 mm[Hg] 78 mm[Hg] Hanna Munoz [employer] 8 09:51:42 Social History Question Answer Notes LastModified by Organizat ion Details LastModified Time Tobacco Smoking Status Never Smoker Leny vasquez [facility] 09/15/2017 09:34:25 Which Illicit Or Recreational Drugs [...] Cancer (location) N Other N Gout N Kidney Stones N Measles/Mumps N Sexually Transmitted Disease N Depression N Prostate Problems N Parkinson's N Paralysis N Headaches/Migraines N Cardiac Pacemaker/defibrillator N Arthritis N Crohn's Disease N HIV/AIDS N Stroke/TIA N Kidney Disease N Gallbladder disease N High blood pressure Y Alcohol Overuse N Blood Thinner Treatment N Nervous Breakdown N Bolton's Esophagus N Urinary Problems Y Gastritis N Back pain N Rheumatic Fever N Bleeding Disorder N Osteopenia/Osteoporosis Y Asthma N Ostomies (location) N Seizures N Jaundice N Hepatitis N Cirrhosis N Chicken Pox N Allergies (other than meds) N Thyroid Disease N Emphysema/COPD N Vascular Disease N Rash/Skin Condition N Amputation (location) N Nerve Damage / Neuropathy N Sleep disorder/Insomnia N Heart disease / Heart Attack N High Cholesterol Y Colon Problems N Serious Injuries N Memory Loss/Alzheimer's N Congestive heart failure N Falls N Hormone Replacement N Anemia N Colon Polyps N Hospitalizations (other than operations) N Diabetes N Cardiac Arrhythmias /irregular heart rat e N Anxiety/Stress N Vision Problems N Erectile / Sexual Dysfunction N Sleep Apnea N GERD/Ulcer N Gynecological HistoryNo gynecological history recorded. Obstetrics History GPAL:G 0 P 0 0 0 0 Past Encounters Encounter ID Performer Location Encounter Start Date Encounter Closed Date Diagnosis/Indication Diagnosis SNOMED-CT Code Diagnosis ICD10 Code [id number] Wil Ochoa DO [employer] [address] [address] [place] [address] 09/15/2017 09:27:46 09/17/2017 23:19:16 Dysuria 96242992 R30.0 Acute urin rafia tract infection 872653482 N39.0 Health Concerns Section Related Observation LastModified by Organization Detai ls LastModified Time None Recorded Concern Status LastModified by Organization Details LastModified Time None Recorded Advance Directives Directive None Recorded Payers Encounter Date Sequence Insurance Name Policy Number Policy Martinez Covered Member ID Martinez Member ID Guarantor Name 09/15/2017 1 [employer] - M[employer]IPL[employer] - IFB (PPO) Petra Loja [id number] Petra Loja Notes Date Note Type Note [...] Patient. Wil Ochoa DO [address], [place], [address], [facility] - [facility], [facility] 09/18/2017 20:11:20 OBGyn Episode No OBEpisode recorded.
--- OUTSIDE RECORDS SUMMARY | 2024-04-24 08:02 | XMS_ITS | Clinical Summary ---
Author Organization [employer] [facility] Address [place], [place] [address] Care Team Providers Care Senior Mechanical Designer Name Role Phone Thais Bingham MD Primary Care Provide r Soco Banuelos MD Unavailable [phone] Allergies Active Allergy Reactions Criticality Noted Date Comments Amoxicillin-Pot Clavulanate GI Upset 04/09/20 24 Nitrofurantoin Nausea And Vomiting 12/30/2006 Prednisone Chest [...] Take 1,000 mg by mouth once daily. Tumeric 03/05/2024 Active omeprazole 20 mg tablet Take 1 Tablet (20 mg) by mouth once daily before a meal. 04/09/2024 Active amoxicillin-clavul anate (Augmentin) 875-125 mg tabletIndications: Acute colitis Take 1 tablet three times daily with meals for 7 days 21 Tablet 03/22/2024 Discontinue d(*Patient states no longer taking) Active [...] Encounters Date Type Department Care Team Description 04/09/2024 2:40 PM CDT Office Visit [facility] [address] [place] [address] Thais Bingham MD Follow Up (EGD on 04/02, was told there were a couple polyps./Getting better, stools have been messed up for 10 days. The last 2 days have been normal./Still does not understand what has happened for the last 6 weeks.) 04/09/2024 Travel 04/04/2024 Travel 03/26/2024 Telephone [facility] [address] [place] [address] Thais Bingham MD Referral (EDG Referral) 03/25/2024 Medical Messaging [facility] [address] [place] [address] Thais Bingham MD ER 03/23/2024 Orders Only [facility] Scanner 1 scan: (1-Ord) [facility], ABDOMEN PELVIS W, 03/23/2024 03/23/2024 Nurse Triage [facility] [address] [place] [address] Thais Bingham MD Vomiting 03/05/2024 11:20 AM CDT Office Visit [facility] [address] [place] [address] [address] Thais Bingham MD ER Follow up (02/26/24. Abdominal pain with rectal bleeding. Determined to be Colitis./ Concerns today are the nodules seen at the ER on the CT scan) 03/05/2024 Travel 02/26/2024 Orders Only [facility] Scanner 1 scan: (1-Ord) [facility], ANGIO ABD PEL GI BLEED, 02/26/2024 from Last 3 Months Immunizations Name Administration Dates Next Due COVID-19 vaccine (Moveline 30mcg/0.3mL) P FCARYN 09/24/2020,09/03/2020 Influenza, Inactivated IIV3 (Age 65+ Years) [...] file 03/05/2024 Food Insecurity Answer Date Recorded Do you worry your food will run out before you are able to buy more? 1 03/05/2024 Transportation Needs Answer Date Record ed Lack of Transportation (Medical) 1 03/05/2024 Housing Stability Answer Date Recorded What is your housing situation today? 1 03/05/2024 Sex and Gender Information Value Date Recorded Sex Assigned at Not on file Gender Identity Not on file Sexual Orientation Not on file Obstetrics History Last Filed Vital Signs Vital Sign Reading Time Taken Comments Blood Pressure 122/79 04/09/2024 2:48 PM CDT Pulse 82 04/09/2024 2:48 PM CDT Temperature 36.4 ??C (97.6 ??F) 10/19/2023 8:30 AM CD T Respiratory Rate 14 10/26/2023 8:50 AM CDT Oxygen Saturation 97% 04/09/2024 2:48 PM CDT Inhaled Oxygen Concentration - - Weight 60.6 kg (133 lb 11.2 oz) 04/09/2024 2:48 PM CDT Height 156.2 cm (5' 1.5) 07/27/2023 10 :52 AM BILINGUAL LEGAL ASSISTANT Body Mass Index 24.85 07/27/2023 10:52 AM BILINGUAL LEGAL ASSISTANT Plan of Treatment Health Maintenance Due Date Last Done Comments [...] Garcia LPN Medical Devices Implanted Type Area Lockstitch Hemmer Device Identifier Shelf Expiration Date Model / Serial / Lot Bone 1-4mm 30cc Medtronic Chips Canclls Freeze Dried - [id number] Implanted:Qty : 1 on 05/12/2020 by Leandro Renee MD at [facility] Right: Lumbar Vertebrae Medtronic Spine/Ortho 11/05/2024 [id number] / / [id number] Bone Matrix 10cc Progenix Plusputty Dbm - [id number] Implanted:Qty : 1 on 05/12/2020 by Leandro Renee MD at [facility] Right: Lumbar Vertebrae Medtronic Spine/Ortho 12/25/2021 [id number] / / [id number] Bone Matrix Sm Infuse Bmp - [id number] Implanted:Qty : 1 on 05/12/2020 by Leandro Renee MD at [facility] Right: Lumbar Vertebrae Medtronic Spine/Ortho 04/01/2022 [id number]# / / [id number] Elite Spacer - [id number] Implanted:Qty : 1 on 05/12/2020 by Leandro Renee MD at [facility] Right: Lumbar Vertebrae [employer] 12/31/2024 [id number] / / [id number] Screw Lmbr Mantis Redux - [id number] Implanted:Qty : 4 on 05/12/2020 by Leandro Renee MD at [facility] Right: Lumbar Vertebrae Erin Spine [id number]# / / Screw Lmbr 7.5x50mm Es2 Va Mis - [id number] Implanted:Qty : 4 on 05/12/2020 by Leandro Renee MD at [facility] Right: Lumbar Vertebrae Al Spine [id number] / / Price Lmbr 40mmx5.5 Es2 Cvd - [id number] Implanted:Qty : 1 on 05/12/2020 by Leandro Renee MD at [facility] Right: Lumbar Vertebrae Erin Spine [id number]# / / Price Lmbr 45mmx5.5 Es2 Cvd - [id number] Implanted:Qty : 1 on 05/12/2020 by Leandro Renee MD at [facility] Right: Lumbar Vertebrae Al Spine [id number] / / Procedures Procedure Name Priority Date/Time Associated Diagnosis Comments AMB CONSULT TO GASTROENTEROLOGY CANDIE 04/03/2024 7:43 PM CDT Acute colitis SCAN-OPERATIVE/PROCEDURE REPORT 04/02/2024 8:00 AM CDT SCAN-CT INTERPRETATION 4 12:00 AM CDT SCAN-CT INTERPRETATION 4 12:00 AM CDT COLONOSCOPY SCREENING Routine 10/26/2023 7:28 AM CDT Screening for colon cancer XR DXA BONE DENSITY 2 SITES AXIAL Routine 07/27/2023 1:39 PM BILINGUAL LEGAL ASSISTANT Osteoporosis, unspecified osteoporosis type, unspecified pathological fracture presence LIPID PANEL W REFLEX MEASURED LDL Routine 07/27/2023 12:04 PM BILINGUAL LEGAL ASSISTANT Lipid screening SCAN-MAMMOGRAPHY REPORT 07/25/19 12:00 AM BILINGUAL LEGAL ASSISTANT ANTI HCV Routine 03/21/2019 9:11 AM CDT Encounter for hepatitis C screening test for low risk patient from Last 3 Months or Most Recently Relevant to Health Maintenance Results * SCAN-OPERATIVE/PROCEDURE REPORT (04/02/2024 8:00 AM CDT) Narrative Procedure Note Abida Jean MD - 04/02/2024 7:18 AM CDT [facility] [address], [address], [place] [address] Patient Name: Petra Loja Gender: Female Exam Date: 04/02/2024 Visit Number: [id number] Age: 69 Years Date of : 1955 Attending MD: Abida Jean MD Medical Record#: [id number] ----- Procedure: Upper GI Endoscopy Indications: Nausea or Vomiting Abdominal Pain Provider: Abida Jean MD Referring MD: Thais Bingham MD Primary MD: Thais Bingham MD Medications: Admitting Medication: 0.9% Normal Saline at TKO Ondansetron Hydrochloride (Zofran) given 2ml by IV Intra Procedure Medications: Patient received monitored anesthesia care. Complications: No immediate complications Procedure: An examination of the heart and lungs was performed within acceptablelimits. . The patient was therefore deemed a reasonable candidate forsedation. The risks and benefits were explained to the patient, who appeared tounderstand. After obtaining informed consent, the scope was passed underdirect vision. Throughout the procedure the patient's blood pressure,pulse and oxygen saturations were monitored. The scope was introducedthrough the mouth and advanced to the second portion of duodenum. Findings: Esophagus: Normal esophagus. The z-line is 38 centimeters from the incisors. Top of the gastric foldsis 38 centimeters from the incisors. Stomach: Erythematous Location: antrum; description: mild Maneuver: biopsies were obtained cold biopsy forceps The diaphragm hiatus is at 38 centimeters from the incisors. Stomach Polyp(s). Location: body. Quantity: few. Size: 3 mm. Shape:sessile. Maneuver: biopsy. Instrument used: cold biopsy forceps. Removal:no removal. Retrieval: none. Bleeding: none. Duodenum: Normal Location: entire duodenum Maneuver: biopsies were obtained cold biopsy forceps. Impression: Nausea and vomiting, unspecified vomiting type Generalized abdominal pain Choking sensation Pathology Results: A: DUODENUM, BIOPSY: 1. Normal duodenal mucosa 2. Negative for celiac disease and other enteropathy B: STOMACH, BIOPSY: 1. Reactive gastropathy (see comment) a. Sampling: Antral and body mucosae b. Distribution: Antral mucosa 2. Negative for inflammation, atrophy and Helicobacter C: STOMACH, BODY, POLYPS, BIOPSY: 1. Fundic gland polyps 2. Negative for dysplasia and malignancy 3. Negative for inflammation and Helicobacter organisms COMMENTS B. The likely etiology is an ongoing non-inflammatory type mucosal injurydue to a chemical type of injury; this may be due to ingestion ofnon-steroidal anti-inflammatory drugs, aspirin (via prostaglandin-mediatedinjury), excess alcohol, corticosteroids, or bile/alkaline reflux, thelatter usually in the setting of a gastroenteric anastomosis. MICROSCOPIC A: Performed B: Performed C: Performed Electronically signed by: Pete Jose MD Interpreted at [facility], [address] [place] [id number] Orders Diagnostics: Procedure Comments Timeframe Assessment Xray Esophagus (Esophagram, Barium Swallow Study) choking sensation FirstAvailable R09.89 _Electronically signed by: Abida Jean MD 04/02/2024 cc: Thais Bingham MD cc: Thais Bingham MD Abida Jean MD OTHER * SCAN-CT INTERPRETATION (03/23/2024 12:00 AM CDT) Only the most recent of2 resultswithin the time period is included. Anatomical Region Laterality Modality Other Scanner OTHER [...] an adequate candidate for conscious sedation. The [id number] was passed through the anus and advanced [...] 7:57 AM Procedure Code(s): --- Professional --- 19259, Colonoscopy, flexible; diagnostic, including collection of specimen(s) bybrushing or washing, when performed (separateprocedure) Diagnosis Code(s): --- Professional --- Z12.11, Encounter for screening formalignant neoplasm of colon K57.30, Diverticulosis of large intestine without perforation or abscess withoutbleeding CPT copyright 2022 [employer] [place] [employer]. All rights reserved. The codes documented in this report are preliminary and upon medical delivery driver reviewmay be revised to meet current compliance requirements. Scope In: 8:14:15 AM Scope Withdrawal Time 0 hours 7 minutes 27 seconds Scope Out: 8:32:15 AM Zeferino Peterson MD PROCEDURE ORD * (ABNORMAL) XR DXA BONE DENSITY 2 SITES AXIAL (07/27/2023 1:39 PM BILINGUAL LEGAL ASSISTANT) Anatomical Region Laterality Modality Spine, HIPS, HIPL, HIPR Other Impressions 08/01/2023 2:36 PM BILINGUAL LEGAL ASSISTANT Osteopenia. RECOMMENDATIONS: The National Osteoporosis Foundation recommends [...] recommended in 3-5 years. Candi Driver PA-C [facility] 08/01/2023 Narrative 08/01/2023 2:36 PM BILINGUAL LEGAL ASSISTANT For Patients: Results are automatically released to your [facility] ([employer]) account once available, in compliance with federal regulations. This means that you may see your results before your provider has had a chance to review them. Please allow 2-3 business days for your provider to comment on the results. XR DXA Bone Mineral Density (BMD) EXAM LOCATION: [address] [address] PATIENT NAME: Petra Loja DATE OF : [...] two scanners are made by the same issue clerk. PROCEDURE: Dual-energy x-ray absorptiometry performed with routine [...] W REFLEX MEASURED LDL (07/27/2023 12:04 PM BILINGUAL LEGAL ASSISTANT) [facility] CHOLESTEROL,TOTAL 292(H) 100 - 199 mg/dL 07/27/2023 10:25 PM BILINGUAL LEGAL ASSISTANT [facility] Comment: Cholesterol, Total Reference Ranges Desirable <200 mg/dL Borderline 200-239 mg/dL High >=240 mg/dL TRIGLYCERIDES 107 <150 mg/dL 07/27/2023 10:25 PM BILINGUAL LEGAL ASSISTANT [facility] HDL CHOLESTEROL 71 >40 mg/dL 10:25 PM BILINGUAL LEGAL ASSISTANT [facility] NON-HDL CHOLESTEROL 221(H) <145 mg/dl 07/27/2023 10:25 PM BILINGUAL LEGAL ASSISTANT [facility] CHOL/HDL RATIO 4.11 <4.50 07/27/2023 10:25 PM BILINGUAL LEGAL ASSISTANT [facility] LDL CHOLESTEROL 200(H) <=130 mg/dL 07/27/2023 10:25 PM BILINGUAL LEGAL ASSISTANT [facility] VLDL CHOLESTEROL 21 <=30 mg/dL 07/27/2023 10:25 PM BILINGUAL LEGAL ASSISTANT [facility] PROVIDER ORDERED STATUS RANDOM 07/27/2023 10:25 PM BILINGUAL LEGAL ASSISTANT [facility] Blood BLOOD SPECIMEN / Unknown Venipuncture / Unknown 07/27/2023 12:04 PM BILINGUAL LEGAL ASSISTANT 07/27/2023 12:06 PM BILINGUAL LEGAL ASSISTANT Thais Bingham MD CHEMISTRY [facility] [address] [place] [address], * SCAN-MAMMOGRAPHY REPORT (07/25/2023 12:00 AM BILINGUAL LEGAL ASSISTANT) Anatomical Region Laterality Modality Other Scanner OTHER * ANTI HCV (03/21/2019 9:11 AM CDT) HEPATITIS C ANTIBODY Non-React ricky Non-React ricky 03/21/2019 2:05 PM CDT [facility] Comment:Antibodies to HCV no t detected; does not exclude the possibility of exposure to HCV. Blood BLOOD SPECIMEN / Unknown Venipuncture / Unknown 03/21/2019 9:11 AM CDT 03/21/2019 9:12 AM CDT Thais Bingham MD SEND OUTS [facility] [address] [place] [address], from Last 3 Months or Most Recently Relevant to Health Maintenance Advance Directives Documents on File Type Date Recorded Patient Reconnaissance Man Expl anation Healthcare Directive 05/12/2020 10:22 AM Healthcare Directive 01/26/2016 8:42 AM [facility], 01/11/2016 * Full Code (Latest Code Status on File) Date Activated Date Inactivated Comments 05/12/2020 2:46 PM 05/14/2020 5:39 PM Question Answer Comments Code Status Discussion: Not Discussed * Full Code Date Activated Date Inactivated Comments 05/12/2020 10:31 AM 05/12/2020 2:46 PM Question Answer Comments Code Status Discussion: Not Discussed Care Teams Senior Mechanical Designer Relationship Specialty Start Date End Date Thais Bingham MD [address] [place] [address] PCP - General 02/07/06 Soco Banuelos MD [address] [facility] [address] [place] [address] Rheumatology 06/09/23
--- NOTE | 2024-04-24 08:15 | CRLHL7_ITS ---
For Patients: As a result of the Century Cures Act, medical imaging exams and procedure reports are released immediately into your electronic medical record. You may view this report before your referring provider. If you have questions, please contact your health care provider. Technique: Double-contrast esophagram performed after the uneventful administration of effervescent crystals and thick barium followed by thin barium. Fluoroscopy time 49 seconds. Indication: CHOKING SENSATIONS,NAUSEA AND vomiting Comparison: CT 03/23/2024 Findings: Esophagus: Normal motility. No hernia. Tertiary contractions noted within the mid and distal esophagus. No stricture or ulcer. Normal swallowing mechanism. Gastroesophageal reflux: Spontaneous reflux noted during position changes. Impression: Spontaneous gastroesophageal reflux with tertiary contractions involving the mid and distal esophagus. Dictated by Silvano Goldman MD @ 04/24/2024 12:35:36 PM (Electronically Signed)
== END 2024-04-24 07:58 | disposition home or self-care (01) ==
LOC: RAD 08:00
PROVIDERS: PCP Family Medicine; Visit Provider Internal Medicine
DX: R09.89 Other specified symptoms and signs involving the circulatory and respiratory systems (principal); K21.9 Gastro-esophageal reflux disease without esophagitis; R11.2 Nausea with vomiting, unspecified; R10.84 Generalized abdominal pain
CPT/HCPCS: 74221

== ENCOUNTER 2024-08-13 16:30 | Outpatient (CLI) | payer MEDICARE, BC, SELFPAY ==
--- NOTE | 2024-08-13 16:40 | CRLHL7_ITS ---
For Patients: As a result of the Cures Act, medical imaging exams and procedure reports are released immediately into your electronic medical record. You may view this report before your referring provider. If you have questions, please contact your health care provider. BILATERAL SCREENING MAMMOGRAM WITH COMPUTER-AIDED DETECTION AND TOMOSYNTHESIS TECHNIQUE: CC and MLO views were obtained. These mammographic images have been obtained using full-field digital technique. These mammographic images were interpreted with the benefit of computer-aided detection. Breast Tomosynthesis was used in this interpretation. COMPARISON FILM: 07/20/22, 07/25/23, 05/26/21. FINDINGS: There are scattered areas of fibroglandular density IMPRESSION: There is no radiographic evidence for malignancy. ASSESSMENT: BI-RADS Category 1: Negative RECOMMENDATION: Routine screening mammogram in 1 year. A lay language report of this examination will be provided to the patient. Silvano Goldman M.D. Diagnostic Radiologist [email or web address] ALLI/elva Transcribed: 2:18 p.mSavanah stevenson/Dictated by: Silvano Goldman MD @ 08/16/2024 10:06:00 AM (Electronically Signed)
== END 2024-08-13 16:31 | disposition home or self-care (01) ==
PROVIDERS: PCP Family Medicine; Visit Provider Family Medicine
DX: Z12.31 Encounter for screening mammogram for malignant neoplasm of breast (principal)
CPT/HCPCS: 77063; 77067